=== PATIENT | male | born 1955 | race Hispanic/Latino ===

== ENCOUNTER 2019-04-21 21:43 | Inpatient (IN) | payer MEDICARE ==
[2019-04-21] MEDS ORDERED: oxyCODONE /ACETAMINOPHEN 5-325MG TAB PO ONE (22:30)
[2019-04-21] MEDS ORDERED: SODIUM CHLORIDE 0.9% 1000 ML IV SOLN IV ONE (22:30)
[2019-04-21] MEDS ORDERED: ALBUTEROL 2.5 MG/3 ML NEBU IH ONE (22:30)
[2019-04-21] MEDS ORDERED: ACETAMINOPHEN 325 MG TAB PO ONE (22:31)
--- NOTE | 2019-04-21 22:32 | Emergency Department Report ---
ED General Adult HPI - General Chief complaint: Dyspnea/Respdistress Stated complaint: COPD Time Seen by Provider: 04/21/19 22:08 Source: patient, EMS ( EMS documentation not available at time of chart dictation ), RN notes reviewed Mode of arrival: Wheelchair Limitations: Other (The patient is a poor historian) - History of Present Illness Initial comments: Primary care doctor: Dr. Gerardo Shrestha The patient is a 63-year-old gentleman. He is not known to myself previously. He is currently on BiPAP and is a poor historian. As per [facility] documentation, has history of acute and chronic respiratory failure with hypoxia, COPD, unspecified systolic congestive heart failure, unknown ejection fraction, chronic A. fib, unspecified, unknown if he is on any anticoagulation, type 2 diabetes, psychoactive substance abuse with intoxication, anxiety, hyperlipidemia, constipation, shortness of breath, lack of coordination He is brought to the hospital by EMS for shortness of breath. He was reportedly treated with albuterol, magnesium, steroids. He is currently on a BiPAP. He indicates that he is having pain all over. He indicates that his symptoms started today. He indicates that his symptoms typically improved with Percocet. He does not complain of headache, neck pain, chest pain, abdominal pain, he has diffuse extremity pain. He is found to be febrile, tachycardic, tachypneic, ruling in for systemic inflammatory response syndrome. -: Gradual Location: left, right, upper extremity, lower extremity Severity scale (0 -10): 0 Quality: aching Consistency: constant Improves with: rest Worsens with: movement - Related Data Allergies Allergy/AdvReac Type Severity Reaction Status Date / Time No Known Allergies Allergy Unverified 04/21/19 22:02 ED Review of Systems ROS: Stated complaint: COPD Other details as noted in HPI Constitutional: fever, malaise ENT: congestion Respiratory: cough, shortness of breath, SOB with exertion, SOB at rest, wheezing Cardiovascular: denies: syncope Gastrointestinal: denies: abdominal pain Musculoskeletal: arthralgia, myalgia Skin: denies: lesions Neurological: weakness ED Past Medical Hx - Past Medical History Previous Medical History?: Yes Hx Hypertension: Yes Hx Congestive Heart Failure: Yes Hx Diabetes: Yes Hx Psychiatric Treatment: Yes (anxiety) Hx COPD: Yes Additional medical history: chronic respiratory failure, chronic Afib, hyperlipidemia - Surgical History Past Surgical History?: Yes Additional Surgical History: both shoulder, both knees, right foot, back - Social History Smoking Status: Former Smoker Substance Use Type: None ED Physical Exam - General Limitations: Physical Limitation General appearance: alert, in distress, obese - Head Head exam: Present: atraumatic, normocephalic - Eye Eye exam: Present: normal appearance, EOMI. Absent: nystagmus - ENT ENT exam: Present: normal exam, mucous membranes moist, normal external ear exam - Neck Neck exam: Present: normal inspection, full ROM. Absent: tenderness, meningismus - Respiratory Respiratory exam: Present: respiratory distress, rhonchi, accessory muscle use, decreased breath sounds - Cardiovascular Cardiovascular Exam: Present: normal rhythm, tachycardia, normal heart sounds. Absent: systolic murmur, diastolic murmur, rubs, gallop - GI/Abdominal GI/Abdominal exam: Present: soft. Absent: distended, tenderness, guarding, rebound, rigid, pulsatile mass - Rectal Rectal exam: Present: deferred - Extremities Exam Extremities exam: Present: normal inspection, full ROM, other (2+ pulses noted in the bilateral upper and lower extremities. There is no palpable cord. negative Homans sign. Muscular compartments are soft. The pelvis is stable.). Absent: pedal edema, calf tenderness - Back Exam Back exam: Present: normal inspection. Absent: tenderness, CVA tenderness (R), CVA tenderness (L), paraspinal tenderness, vertebral tenderness - Neurological Exam Neurological exam: Present: alert, other (There is no facial droop. The tongue is midline. Extraocular movements are intact bilaterally. There is 5 out of 5 strength in bilateral upper and lower extremities. Sensation is intact to light touch bilateral upper and lower extremities. ). Absent: motor sensory deficit - Psychiatric Psychiatric exam: Present: anxious - Skin Skin exam: Present: warm, dry, intact, normal color. Absent: rash ED Course Vital Signs 04/21/19 04/21/19 04/21/19 21:48 21:57 21:58 Temperature 101.8 F H Pulse Rate 130 H 129 H 127 H Pulse Rate [ Bilateral] Respiratory 35 H 32 H 33 H Rate Respiratory Rate [Bilateral ] Blood Pressure 133/73 Blood Pressure 132/68 [Right] O2 Sat by Pulse 99 100 99 Oximetry 04/21/19 04/21/19 04/21/19 22:05 22:38 22:40 Temperature 101.8 F H Pulse Rate 125 H Pulse Rate [ Bilateral] Respiratory 32 H 25 H 30 H Rate Respiratory Rate [Bilateral ] Blood Pressure 132/68 Blood Pressure [Right] O2 Sat by Pulse 100 Oximetry 04/21/19 23:05 Temperature Pulse Rate Pulse Rate [ 120 H Bilateral] Respiratory Rate Respiratory 30 H Rate [Bilateral ] Blood Pressure Blood Pressure [Right] O2 Sat by Pulse Oximetry - Reevaluation(s) Reevaluation #1: 04/22/19 00:14 Flu swab pending. Case presented to hospital physician, Dr. Haney, who has accepted the patient to the medical service. ED Medical Decision Making - Lab Data Result diagrams: 04/21/19 23:03 04/21/19 23:03 Vital Signs 04/21/19 04/21/19 04/21/19 21:48 21:57 21:58 Temperature 101.8 F H Pulse Rate 130 H 129 H 127 H Pulse Rate [ Bilateral] Respiratory 35 H 32 H 33 H Rate Respiratory Rate [Bilateral ] Blood Pressure 133/73 Blood Pressure 132/68 [Right] O2 Sat by Pulse 99 100 99 Oximetry 04/21/19 04/21/19 04/21/19 22:05 22:38 22:40 Temperature 101.8 F H Pulse Rate 125 H Pulse Rate [ Bilateral] Respiratory 32 H 25 H 30 H Rate Respiratory Rate [Bilateral ] Blood Pressure 132/68 Blood Pressure [Right] O2 Sat by Pulse 100 Oximetry 04/21/19 23:05 Temperature Pulse Rate Pulse Rate [ 120 H Bilateral] Respiratory Rate Respiratory 30 H Rate [Bilateral ] Blood Pressure Blood Pressure [Right] O2 Sat by Pulse Oximetry Lab Results 04/21/19 04/21/19 Range/Units 21:50 23:03 WBC 12.0 H (4.5-11.0) K/mm3 RBC 3.60 L (3.65-5.03) M/mm3 Hgb 10.6 L (11.8-15.2) gm/dl Hct 33.2 L (35.5-45.6) % MCV 92 (84-94) fl MCH 30 (28-32) pg MCHC 32 (32-34) % RDW 16.0 H (13.2-15.2) % Plt Count 428 (140-440) K/mm3 Lymph % (Auto) 3.6 L (13.4-35.0) % Cowley % (Auto) 7.2 (0.0-7.3) % Eos % (Auto) 0.1 (0.0-4.3) % Baso % (Auto) 0.2 (0.0-1.8) % Lymph # 0.4 L (1.2-5.4) K/mm3 Cowley # 0.9 H (0.0-0.8) K/mm3 Eos # 0.0 (0.0-0.4) K/mm3 Baso # 0.0 (0.0-0.1) K/mm3 Seg Neutrophils % 88.9 H (40.0-70.0) % Seg Neutrophils # 10.7 H (1.8-7.7) K/mm3 ABG pH 7.340 L (7.350-7.450) pH Units ABG pCO2 59.5 mm Hg ABG pO2 102.6 H (80.0-90.0) mm Hg ABG HCO3 31.4 H (20.0-26.0) mmol/L ABG O2 Saturation 97.4 (95.0-99.0) % ABG O2 Content 17.5 (0.0-44) ABG Base Excess 4.1 H (-2.0-3.0) mmol/L ABG Hemoglobin 13.0 L (14.0-18.0) gm/dl ABG Carboxyhemoglobin 1.8 (0.0-5.0) % ABG Methemoglobin 0.5 (0.0-1.5) % Oxyhemoglobin 95.2 (95.0-99.0) % FiO2 40 % Vital Signs 04/21/19 04/21/19 04/21/19 21:48 21:57 21:58 Temperature 101.8 F H Pulse Rate 130 H 129 H 127 H Pulse Rate [ Bilateral] Respiratory 35 H 32 H 33 H Rate Respiratory Rate [Bilateral ] Blood Pressure 133/73 Blood Pressure 132/68 [Right] O2 Sat by Pulse 99 100 99 Oximetry 04/21/19 04/21/19 04/21/19 22:05 22:38 22:40 Temperature 101.8 F H Pulse Rate 125 H Pulse Rate [ Bilateral] Respiratory 32 H 25 H 30 H Rate Respiratory Rate [Bilateral ] Blood Pressure 132/68 Blood Pressure [Right] O2 Sat by Pulse 100 Oximetry 04/21/19 23:05 Temperature Pulse Rate Pulse Rate [ 120 H Bilateral] Respiratory Rate Respiratory 30 H Rate [Bilateral ] Blood Pressure Blood Pressure [Right] O2 Sat by Pulse Oximetry - EKG Data -: EKG Interpreted by Vt EKG shows normal: sinus rhythm Rate: tachycardia - EKG Data 04/21/19 23:30 There is no prior EKG available for comparison. There is motion artifact. Sinus, tachycardia, normal axis, QTC 422 ms, motion artifact, poor R wave progression, abnormal EKG, no prior for comparison. - Radiology Data Radiology results: report reviewed, image reviewed Date of : 1955 Sex: Male Report Date: 2019-04-21 Report Status: Finalized [facility] [address] [place] [address] XRay Report Signed Patient: MK MURDOCK MR#: [id number] 28 : 1955 Acct:[id number] Age/Sex: 63 / M ADM Date: 04/21/19 Loc: ED Attending Dr: Ordering Physician: MATHEW DELGADO MD Date of Service: 04/21/19 Procedure(s): XR chest 1V ap Accession Number(s): [id number] cc: MATHEW DELGADO MD Fluoro Time In Minutes: CHEST 1 VIEW 04/21/2019 10:38 PM INDICATION / CLINICAL INFORMATION: sob. COMPARISON: None available. FINDINGS: SUPPORT DEVICES: None. HEART / MEDIASTINUM: No significant abnormality. LUNGS / PLEURA: Generalized bilateral interstitial opacities are noted. No significant pleural effusion. No pneumothorax. ADDITIONAL FINDINGS: No significant additional findings. IMPRESSION: Probable pulmonary edema. Signer Name: Ramakrishna Salvador MD Signed: 04/21/2019 11:02 PM Workstation Name: [id number] Transcribed By: MN Dictated By: Ramakrishna Salvador MD Electronically Authenticated By: Ramakrishna Salvador MD Signed Date/Time: 04/21/192301 DD/ 00 - Medical Decision Making Differential diagnosis, including but not limited to: Pneumonia, bronchitis, influenza, pericarditis, myocarditis, COPD exacerbation, asthma exacerbation Assessment and plan: 63-year-old gentleman with known reactive airway disease, has diminished breath sounds, does not have crackles, does not have rales, does not have significant lower extremity edema, x-ray interpretation is reviewed and appreciated, I interpret the x-rays being consistent with interstitial lung disease, or chronic lung disease. Patient protecting his airway and on BiPAP therapy at this time. He is found to meet sepsis criteria, manifested by fever, tachycardia, tachypnea. He will be treated according to the sepsis pathway. Laboratory studies pending at this time. We will admit the patient to the medical service once initial diagnostics have resulted. Critical Care Time: Yes Critical care time in (mins) excluding proc time.: 35 Critical care attestation.: If time is entered above; I have spent that time in minutes in the direct care of this critically ill patient, excluding procedure time. ED Disposition Clinical Impression: SIRS (systemic inflammatory response syndrome), COPD exacerbation Disposition: OP ADMIT IP TO THIS HOSP Is pt being admited?: Yes Condition: Serious Instructions: Chronic Obstructive Pulmonary Disease (ED) Referrals: PRIMARY CAREMD [Primary Care Provider] - 3-5 Days
[2019-04-21 22:40] LABS: ABG Base Excess 4.1 mmol/L (-2.0-3.0); ABG HCO3 31.4 mmol/L (20.0-26.0); ABG Methemoglobin 0.5 % (0.0-1.5); ABG Oxygen Saturation 97.4 % (95.0-99.0); ABG PCO2 59.5 mm Hg; ABG PH 7.34 pH Units (7.350-7.450); ABG PO2 102.6 mm Hg (80.0-90.0)
[2019-04-21] MEDS: cefTRIAXone/NS 2 GM/100 ML 2 GM/100 ML BAG IV ONE ×2 (23:00→23:29)
--- NOTE | 2019-04-21 23:06 | XRay Report ---
CHEST 1 VIEW 04/21/2019 10:38 PM INDICATION / CLINICAL INFORMATION: sob. COMPARISON: None available. FINDINGS: SUPPORT DEVICES: None. HEART / MEDIASTINUM: No significant abnormality. LUNGS / PLEURA: Generalized bilateral interstitial opacities are noted. No significant pleural effusi on. No pneumothorax. ADDITIONAL FINDINGS: No significant additional findings. IMPRESSION: Probable pulmonary edema. Signer Name: Ramakrishna Salvador MD Signed: 04/21/2019 11:02 PM Workstation Name: [id number]
[2019-04-21 23:21] LABS: Basophils % (Auto) 0.2 % (0.0-1.8); Eosinophils % (Auto) 0.1 % (0.0-4.3); Hematocrit 33.2 % (35.5-45.6); Hemoglobin 10.6 gm/dl (11.8-15.2); Lymphocytes # (Auto) 0.4 K/mm3 (1.2-5.4); Lymphocytes % (Auto) 3.6 % (13.4-35.0); Mean Corpuscular HGB Conc 32 % (32-34); Mean Corpuscular Volume 92 fl (84-94); Monocytes # (Auto) 0.9 K/mm3 (0.0-0.8); Monocytes % (Auto) 7.2 % (0.0-7.3); Platelet Count 428 K/mm3 (140-440)
[2019-04-21 23:35] LABS: Amorphous Crystals,Urine Few; Bacteria,Urine 1+ /HPF (Negative); Bilirubin,Urine NEG (Negative); Blood,Urine NEG (Negative); Color,Urine Yellow (Yellow); Mucus,Urine 1+ /HPF; Urobilinogen,Urine < 2.0 mg/dL (<2.0)
[2019-04-21 23:36] LABS: INR 1.19 (0.87-1.13)
[2019-04-21] MEDS ORDERED: AZITHROMYCIN 500 MG in SODIUM CHLORIDE 0.9% 250ML 250 ML IV ONE (23:45)
[2019-04-21 23:47] LABS: Alanine Aminotransferase 17 units/L (7-56); Albumin 3.2 g/dL (3.9-5); BUN/Creatinine Ratio 17; Blood Urea Nitrogen 10 mg/dL (9-20); Hemolysis Index 1
[2019-04-22] MEDS ORDERED: ONDANSETRON 4 MG/2 ML INJ IV PRN (00:49)
[2019-04-22] MEDS ORDERED: DEXTROSE 50% IN WATER (25GM) 50 ML SYRINGE IV PRN (00:49)
[2019-04-22] MEDS ORDERED: ACETAMINOPHEN 325 MG TAB PO PRN (00:49)
--- NOTE | 2019-04-22 01:39 | History and Physical Report ---
<ROBERTO RAINES - Last Filed: 04/22/19 01:35> History of Present Illness Date of examination: 04/22/19 Date of admission: 04/22/2019 Chief complaint: SOB History of present illness: 63-year-old male who is a current resident of [facility] with history of chronic respiratory failure on supplemental oxygen, COPD, sys tolic heart failure, chronic A. fib, DM, psychoactive substance abuse with intoxication, anxiety, HLD, and constipation who [facility] with complaints of shortness of breath. Of note patient is a poor historian. History is taken from patient reports, review of assisted packet sent with patient, and EMS reports. Patient states that he has been experiencing progressively worsening shortness of breath x1 day. Patient admits to being on supplemental oxygen, was unable to provide liters per minute. Patient stated, "I just wear whatever they have it set at". He also complains of generalized body aches and "pain all over". When asked to describe the pain patient stated that he usually feels this type pain fom time to time, and the pain is relieved with Percocet. Patient did not provide any additional details in regards to his pain. He denies chest pain at this time. He denies chest pain, nausea, vomiting, or recent sick contact. Will admit for further evaluation and treatment. Past History Past Medical History: atrial fib, COPD, diabetes, hypertension, hyperlipidemia, other (Respiratory failure on 1 to 4 L supplemental oxygen, psychoactive substance abuse with intoxication, anxiety, constipation) Past Surgical History: Other (Bilateral shoulder, bilateral knees, right foot, back) Social history: other (Resident of [facility]) Family history: no significant family history Medications and Allergies Allergies Allergy/AdvReac Type Severity Reaction Status Date / Time No Known Allergies Allergy Unverified 04/21/19 22:02 Home Medications Medication Instructions Recorded Confirmed Last Taken Type ALBUTEROL NEB's [Proventil 0.083% 2.5 mg IH TID PRN 04/22/19 04/22/19 Unknown History NEBS] ALPRAZolam [Xanax TAB] 0.5 mg PO BID PRN 04/22/19 04/22/19 Unknown History Acetaminophen/Diphenhydramine 650 mg PO Q4H 04/22/19 04/22/19 Unknown History [Tylenol Pm Ex-Strength Caplet] Budesonide [Pulmicort] 0.5 mg IH Q12HR 04/22/19 04/22/19 Unknown History Buspirone HCl [busPIRone] 15 mg PO BID 04/22/19 04/22/19 Unknown History Docusate Sodium [Colace] 100 mg PO DAILY PRN 04/22/19 04/22/19 Unknown History Melatonin [Melatonin 10MG CAP] 2 tab PO Q8H PRN 04/22/19 04/22/19 Unknown History Metoprolol [Lopressor] 25 mg PO DAILY 04/22/19 04/22/19 Unknown History Potassium Chloride [K-Dur] 20 meq PO BID 04/22/19 04/22/19 Unknown History Roflumilast [Daliresp] 500 mcg PO QDAY 04/22/19 04/22/19 Unknown History guaiFENesin [Robitussin] 5 ml PO Q4H PRN 04/22/19 04/22/19 Unknown History metFORMIN [Glucophage] 500 mg PO BID 04/22/19 04/22/19 Unknown History oxyCODONE /ACETAMINOPHEN [Percocet 2 tab PO Q8H PRN 04/22/19 04/22/19 Unknown History 5/325] predniSONE [Deltasone] 10 mg PO QDAY 04/22/19 04/22/19 Unknown History Active Meds: Active Medications Acetaminophen (Tylenol) 650 mg PO Q4H PRN PRN Reason: Pain MILD(1-3)/Fever >100.5/HONG Albuterol (Proventil) 2.5 mg IH Q3HRT PRN PRN Reason: Shortness Of Breath Albuterol/Ipratropium (Duoneb *Not For Prn Use*) 1 ampul IH Q6HRT [facility] Budesonide (Pulmicort) 0.5 mg IH Q12HRT [facility] Buspirone HCl (Buspar) 15 mg PO BID [facility] Dextrose (D50w (25gm) Syringe) 0 ml IV Q30MIN PRN; Protocol PRN Reason: Hypoglycemia Docusate Sodium (Colace) 100 mg PO BID [facility] Heparin Sodium (Porcine) (Heparin) 5,000 unit SUB-Q Q12HR [facility] Levofloxacin/Dextrose (Levaquin 500mg/100ml) 500 mg in 100 mls @ 100 mls/hr IV Q24HR [facility]; Protocol Insulin Human Lispro (Humalog) 0 unit SUB-Q ACHS [facility]; Protocol Melatonin (Melatonin) 10 mg PO QHS [facility] Metformin HCl (Glucophage) 500 mg PO BIDDIAB [facility] Methylprednisolone Sodium Succinate (Solu-Medrol) 80 mg IV Q8HR [facility] Ondansetron HCl (Zofran) 4 mg IV Q8H PRN PRN Reason: Nausea And Vomiting Oxycodone/Acetaminophen (Percocet 5/325) 1 tab PO Q6H PRN PRN Reason: Pain, Moderate (4-6) Sodium Chloride (Sodium Chloride Flush Syringe 10 Ml) 10 ml IV BID [facility] Sodium Chloride (Sodium Chloride Flush Syringe 10 Ml) 10 ml IV PRN PRN PRN Reason: LINE FLUSH Review of Systems All systems: negative Constitutional: weakness Respiratory: shortness of breath, dyspnea on exertion, wheezing Musculoskeletal: myalgias Exam - Physical Exam Narrative exam: Physical exam General appearance: Present: Mild distress, alert and oriented 3, obese, adult male - EENT Eyes: Present: PERRL, EOM intact ENT: hearing intact, missing teeth - Neck Neck: Present: supple, normal ROM - Respiratory Respiratory effort: Slightly labored, on BiPAP Respiratory: Coarse wheezing - Cardiovascular Heart rate: 120 (bpm) Rhythm: Sinus tachycardia Heart Sounds: Present: S1 & S2. Absent: rub, click - Extremities Extremities: no ischemia, pulses intact, - Peripheral Assessment Peripheral Pulses: within normal limits - Abdominal General gastrointestinal: Obese, soft, non-tender, normal bowel sounds - Integumentary Integumentary: Present: warm, dry - Musculoskeletal Musculoskeletal: Able to move all extremities -Neurological Neurological: CN II-XII intact - Psychiatric Psychiatric: cooperative - Constitutional Vitals: Temp Pulse Resp BP Pulse Ox 101.8 F H 118 H 28 H 128/66 94 04/21/19 22:05 04/22/19 00:00 04/22/19 00:00 04/22/19 00:00 04/22/19 00:00 Results - Labs CBC & Chem 7: 04/21/19 23:03 04/21/19 23:03 Labs: Laboratory Last Values WBC 12.0 K/mm3 (4.5-11.0) H 04/21/19 23:03 RBC 3.60 M/mm3 (3.65-5.03) L 04/21/19 23:03 Hgb 10.6 gm/dl (11.8-15.2) L 04/21/19 23:03 Hct 33.2 % (35.5-45.6) L 04/21/19 23:03 MCV 92 fl (84-94) 04/21/19 23:03 MCH 30 pg (28-32) 04/21/19 23: MCHC 32 % (32-34) 04/21/19 23:03 RDW 16.0 % (13.2-15.2) H 04/21/19 23:03 Plt Count 428 K/mm3 (140-440) 04/21/19 23:03 Lymph % (Auto) 3.6 % (13.4-35.0) L 04/21/19 23:03 [place] % (Auto) 7.2 % (0.0-7.3) 04/21/19 23:03 Eos % (Auto) 0.1 % (0.0-4.3) 04/21/19 23:03 Baso % (Auto) 0.2 % (0.0-1.8) 04/21/19 23:03 Lymph # 0.4 K/mm3 (1.2-5.4) L 04/21/19 23:03 [place] # 0.9 K/mm3 (0.0-0.8) H 04/21/19 23:03 Eos # 0.0 K/mm3 (0.0-0.4) 04/21/19 23: Baso # 0.0 K/mm3 (0.0-0.1) 04/21/19 23:03 Seg Neutrophils % 88.9 % (40.0-70.0) H 04/21/19 23:03 Seg Neutrophils # 10.7 K/mm3 (1.8-7.7) H 04/21/19 23:03 PT 15.3 Sec. (12.2-14.9) H 04/21/19 23:03 INR 1.19 (0.87-1.13) H 04/21/19 23:03 ABG pH 7.340 pH Units (7.350-7.450) L 04/21/19 21:50 ABG pCO2 59.5 mm Hg 04/21/19 21:50 ABG pO2 102.6 mm Hg (80.0-90.0) H 04/21/19 21:50 ABG HCO3 31.4 mmol/L (20.0-26.0) H 04/21/19 21:50 ABG O2 Saturation 97.4 % (95.0-99.0) 04/21/19 21:50 ABG O2 Content 17.5 (0.0-44) 04/21/19 21:50 ABG Base Excess 4.1 mmol/L (-2.0-3.0) H 04/21/19 21:50 ABG Hemoglobin 13.0 gm/dl (14.0-18.0) L 04/21/19 21:50 ABG Carboxyhemoglobin 1.8 % (0.0-5.0) 04/21/19 21:50 ABG Methemoglobin 0.5 % (0.0-1.5) 04/21/19 21:50 Oxyhemoglobin 95.2 % (95.0-99.0) 04/21/19 21:50 FiO2 40 % 04/21/19 21:50 Sodium 143 mmol/L (137-145) 04/21/19 23:03 Potassium 3.7 mmol/L (3.6-5.0) 04/21/19 23:03 Chloride 99.9 mmol/L (98-107) 04/21/19 23:03 Carbon Dioxide 28 mmol/L (22-30) 04/21/19 23:03 Anion Gap 19 mmol/L 04/21/19 23:03 BUN 10 mg/dL (9-20) 04/21/19 23:03 Creatinine 0.6 mg/dL (0.8-1.5) L 04/21/19 23:03 Estimated GFR > 60 ml/min 04/21/19 23:03 BUN/Creatinine Ratio 17 % 04/21/19 23:03 Glucose 165 mg/dL (75-100) H 04/21/19 23:03 Lactic Acid 1.20 mmol/L (0.7-2.0) 04/22/19 00:58 Calcium 9.0 mg/dL (8.4-10.2) 04/21/19 23:03 Magnesium 2.30 mg/dL (1.7-2.3) 04/21/19 23:03 Total Bilirubin 0.40 mg/dL (0.1-1.2) 04/21/19 23:03 AST 26 units/L (5-40) 04/21/19 23:03 ALT 17 units/L (7-56) 04/21/19 23:03 Alkaline Phosphatase 85 units/L (35-129) 04/21/19 23:03 Total Creatine Kinase 74 units/L (55-170) 04/21/19 23:03 Troponin T < 0.010 ng/mL (0.00-0.029) 04/21/19 23:03 Total Protein 6.6 g/dL (6.3-8.2) 04/21/19 23:03 Albumin 3.2 g/dL (3.9-5) L 04/21/19 23:03 Albumin/Globulin Ratio 0.9 % 04/21/19 23:03 TSH 0.206 mlU/mL (0.270-4.200) L 04/21/19 23:03 Urine Color Yellow (Yellow) 04/21/19 23:04 Urine Turbidity Cloudy (Clear) 04/21/19 23:04 Urine pH 5.0 (5.0-7.0) 04/21/19 23:04 Ur Specific [place] 1.027 (1.003-1.030) 04/21/19 23:04 Urine Protein 100 mg/dl mg/dL (Negative) 04/21/19 23:04 Urine Glucose (UA) Neg mg/dL (Negative) 04/21/19 23:04 Urine Ketones 20 mg/dL (Negative) 04/21/19 23:04 Urine Blood Neg (Negative) 04/21/19 23:04 Urine Nitrite Neg (Negative) 04/21/19 23:04 Urine Bilirubin Neg (Negative) 04/21/19 23:04 Urine Urobilinogen < 2.0 mg/dL (<2.0) 04/21/19 23:04 Ur Leukocyte Esterase Neg (Negative) 04/21/19 23:04 Urine WBC (Auto) 7.0 /HPF (0.0-6.0) H 04/21/19 23:04 Urine RBC (Auto) 74.0 /HPF (0.0-6.0) 04/21/19 23:04 U Epithel Cells (Auto) < 1.0 /HPF (0-13.0) 04/21/19 23:04 Urine Bacteria (Auto) 1+ /HPF (Negative) 04/21/19 23:04 Amorphous Crystals Few 04/21/19 23:04 Urine Mucus 1+ /HPF 04/21/19 23:04 Influenza A (Rapid) Negative (Negative) 04/21/19 00:26 Influenza B (Rapid) Negative (Negative) 04/21/19 00:26 - Imaging and Cardiology Imaging and Cardiology: CXR: FINDINGS: SUPPORT DEVICES: None. HEART / MEDIASTINUM: No significant abnormality. LUNGS / PLEURA: Generalized bilateral interstitial opacities are noted. No significant pleural effusion. No pneumothorax. ADDITIONAL FINDINGS: No significant additional findings. IMPRESSION: Probable pulmonary edema. Assessment and Plan Assessment and plan: 63-year-old male who is a current resident of [facility] assisted with history of chronic respiratory failure on supplemental oxygen, COPD, systolic heart failure, chronic A. fib, DM, psychoactive substance abuse with intoxication, anxiety, HLD, and constipation who [facility] with complaints of shortness of breath x 1 day. SIRS -CXR shows probable pulmonary edema -Leukocytosis 12 -Tachycardic with heart rate 110-120 bpm -T-max one 1.8 -UA negative -Blood and urine cultures pending -On IV ABX -Continue supportive care Acute exacerbation COPD -Increased shortness of breath -Scheduled to DuoNebs and Pulmicort, albuterol when necessary -Start IV Levaquin -IV systemic steroids -Continue supportive care Acute on chronic hypoxic respiratory failure -Baseline home oxygen requirements of 1-4L prn -Currently on BiPAP -Initial ABG done on BiPAP 40% FiO2 7.34/50 9.5/102 0.6/31.4 -Monitor saturations -Continue supplemental oxygen wean as tolerated R/O Influenza -C/o generalize weakness and body aches -Rapid influenza A and influenza B negative -Received flu vaccine on 04/15/2019 in outpatient setting DM -POC BG monitoring -Continue metformin and SSI coverage prn -HgbA1C pending Obesity -BMI 31.8 kg -Diet and lifestyle modifications -May benefit from OP weight mgmt program Moderate to severe malnutrition -Albumin 3.2 -Dietary consult placed DVT PPX -on Heparin Advance Directives: No VTE prophylaxis?: Chemical Plan of care discussed with patient/family: Yes <DUPREECONSTANTINOESTHER E - Last Filed: 04/22/19 06:28> History of Present Illness Date of admission: 04/22/19 01:55 Medications and Allergies Active Meds: Active Medications Acetaminophen (Tylenol) 650 mg PO Q4H PRN PRN Reason: Pain MILD(1-3)/Fever >100.5/HONG Albuterol (Proventil) 2.5 mg IH Q3HRT PRN PRN Reason: Shortness Of Breath Albuterol/Ipratropium (Duoneb *Not For Prn Use*) 1 ampul IH Q6HRT [facility] Last Admin: 04/22/19 02:07 Dose: 1 ampul Documented by: Budesonide (Pulmicort) 0.5 mg IH Q12HRT [facility] Buspirone HCl (Buspar) 15 mg PO BID [facility] Dextrose (D50w (25gm) Syringe) 0 ml IV Q30MIN PRN; Protocol PRN Reason: Hypoglycemia Docusate Sodium (Colace) 100 mg PO BID [facility] Heparin Sodium (Porcine) (Heparin) 5,000 unit SUB-Q Q12HR [facility] Levofloxacin/Dextrose (Levaquin 500mg/100ml) 500 mg in 100 mls @ 100 mls/hr IV Q24HR [facility]; Protocol Insulin Human Lispro (Humalog) 0 unit SUB-Q ACHS [facility]LO[facility]; Protocol Melatonin (Melatonin) 10 mg PO QHS [facility] Metformin HCl (Glucophage) 500 mg PO BIDDIAB [facility] Methylprednisolone Sodium Succinate (Solu-Medrol) 80 mg IV Q8HR [facility] Ondansetron HCl (Zofran) 4 mg IV Q8H PRN PRN Reason: Nausea And Vomiting Oxycodone/Acetaminophen (Percocet 5/325) 1 tab PO Q6H PRN PRN Reason: Pain, Moderate (4-6) Last Admin: 04/22/19 04:42 Dose: 1 tab Documented by: Sodium Chloride (Sodium Chloride Flush Syringe 10 Ml) 10 ml IV BID [facility] Sodium Chloride (Sodium Chloride Flush Syringe 10 Ml) 10 ml IV PRN PRN PRN Reason: LINE FLUSH Exam - Constitutional Vitals: Temp Pulse Resp BP Pulse Ox 98.2 F 109 H 26 H 131/72 96 04/22/19 02:58 04/22/19 03:43 04/22/19 03:43 04/22/19 02:58 04/22/19 03:43 Results - Labs CBC & Chem 7: 04/21/19 23:03 04/21/19 23:03 Labs: Laboratory Last Values WBC 12.0 K/mm3 (4.5-11.0) H 04/21/19 23:03 RBC 3.60 M/mm3 (3.65-5.03) L 04/21/19 23:03 Hgb 10.6 gm/dl (11.8-15.2) L 04/21/19 23:03 Hct 33.2 % (35.5-45.6) L 04/21/19 23:03 MCV 92 fl (84-94) 04/21/19 23:03 MCH 30 pg (28-32) 04/21/19 23:03 MCHC 32 % (32-34) 04/21/19 23:03 RDW 16.0 % (13.2-15.2) H 04/21/19 23:03 Plt Count 428 K/mm3 (140-440) 04/21/19 23:03 Lymph % (Auto) 3.6 % (13.4-35.0) L 04/21/19 23:03 [place] % (Auto) 7.2 % (0.0-7.3) 04/21/19 23:03 Eos % (Auto) 0.1 % (0.0-4.3) 04/21/19 23:03 Baso % (Auto) 0.2 % (0.0-1.8) 04/21/19 23:03 Lymph # 0.4 K/mm3 (1.2-5.4) L 04/21/19 23:03 [place] # 0.9 K/mm3 (0.0-0.8) H 04/21/19 23:03 Eos # 0.0 K/mm3 (0.0-0.4) 04/21/19 23:03 Baso # 0.0 K/mm3 (0.0-0.1) 04/21/19 23:03 Seg Neutrophils % 88.9 % (40.0-70.0) H 04/21/19 23:03 Seg Neutrophils # 10.7 K/mm3 (1.8-7.7) H 04/21/19 23:03 PT 15.3 Sec. (12.2-14.9) H 04/21/19 23:03 INR 1.19 (0.87-1.13) H 04/21/19 23:03 ABG pH 7.340 pH Units (7.350-7.450) L 04/21/19 21:50 ABG pCO2 59.5 mm Hg 04/21/19 21:50 ABG pO2 102.6 mm Hg (80.0-90.0) H 04/21/19 21:50 ABG HCO3 31.4 mmol/L (20.0-26.0) H 04/21/19 21:50 ABG O2 Saturation 97.4 % (95.0-99.0) 04/21/19 21:50 ABG O2 Content 17.5 (0.0-44) 04/21/19 21:50 ABG Base Excess 4.1 mmol/L (-2.0-3.0) H 04/21/19 21:50 ABG Hemoglobin 13.0 gm/dl (14.0-18.0) L 04/21/19 21:50 ABG Carboxyhemoglobin 1.8 % (0.0-5.0) 04/21/19 21:50 ABG Methemoglobin 0.5 % (0.0-1.5) 04/21/19 21:50 Oxyhemoglobin 95.2 % (95.0-99.0) 04/21/19 21:50 FiO2 40 % 04/21/19 21:50 Sodium 143 mmol/L (137-145) 04/21/19 23:03 Potassium 3.7 mmol/L (3.6-5.0) 04/21/19 23:03 Chloride 99.9 mmol/L (98-107) 04/21/19 23:03 Carbon Dioxide 28 mmol/L (22-30) 04/21/19 23:03 Anion Gap 19 mmol/L 04/21/19 23:03 BUN 10 mg/dL (9-20) 04/21/19 23:03 Creatinine 0.6 mg/dL (0.8-1.5) L 04/21/19 23:03 Estimated GFR > 60 ml/min 04/21/19 23:03 BUN/Creatinine Ratio 17 % 04/21/19 23:03 Glucose 165 mg/dL (75-100) H 04/21/19 23:03 Hemoglobin A1c 7.9 % (4-6) H 04/22/19 01:51 Lactic Acid 1.20 mmol/L (0.7-2.0) 04/22/19 00:58 Calcium 9.0 mg/dL (8.4-10.2) 04/21/19 23:03 Magnesium 2.30 mg/dL (1.7-2.3) 04/21/19 23:03 Total Bilirubin 0.40 mg/dL (0.1-1.2) 04/21/19 23:03 AST 26 units/L (5-40) 04/21/19 23:03 ALT 17 units/L (7-56) 04/21/19 23:03 Alkaline Phosphatase 85 units/L (35-129) 04/21/19 23:03 Total Creatine Kinase 74 units/L (55-170) 04/21/19 23:03 Troponin T < 0.010 ng/mL (0.00-0.029) 04/21/19 23:03 Total Protein 6.6 g/dL (6.3-8.2) 04/21/19 23:03 Albumin 3.2 g/dL (3.9-5) L 04/21/19 23:03 Albumin/Globulin Ratio 0.9 % 04/21/19 23:03 TSH 0.206 mlU/mL (0.270-4.200) L 04/21/19 23:03 Urine Color Yellow (Yellow) 04/21/19 23:04 Urine Turbidity Cloudy (Clear) 04/21/19 23:04 Urine pH 5.0 (5.0-7.0) 04/21/19 23:04 Ur Specific [place] 1.027 (1.003-1.030) 04/21/19 23:04 Urine Protein 100 mg/dl mg/dL (Negative) 04/21/19 23:04 Urine Glucose (UA) Neg mg/dL (Negative) 04/21/19 23:04 Urine Ketones 20 mg/dL (Negative) 04/21/19 23:04 Urine Blood Neg (Negative) 04/21/19 23:04 Urine Nitrite Neg (Negative) 04/21/19 23:04 Urine Bilirubin Neg (Negative) 04/21/19 23:04 Urine Urobilinogen < 2.0 mg/dL (<2.0) 04/21/19 23:04 Ur Leukocyte Esterase Neg (Negative) 04/21/19 23:04 Urine WBC (Auto) 7.0 /HPF (0.0-6.0) H 04/21/19 23:04 Urine RBC (Auto) 74.0 /HPF (0.0-6.0) 04/21/19 23:04 U Epithel Cells (Auto) < 1.0 /HPF (0-13.0) 04/21/19 23:04 Urine Bacteria (Auto) 1+ /HPF (Negative) 04/21/19 23:04 Amorphous Crystals Few 04/21/19 23:04 Urine Mucus 1+ /HPF 04/21/19 23:04 Influenza A (Rapid) Negative (Negative) 04/21/19 00:26 Influenza B (Rapid) Negative (Negative) 04/21/19 00:26 Assessment and Plan Assessment and plan: Patient seen and examined, discussed with nurse practitioner, agree with plan as stated above
[2019-04-22] MEDS: IPRATROPIUM/ALBUTEROL SULFATE 3 ML AMPUL.NEB IH SCH ×4 (02:07→20:41)
[2019-04-22] MEDS ORDERED: IPRATROPIUM/ALBUTEROL SULFATE 3 ML AMPUL.NEB IH ONE (02:07)
[2019-04-22] MEDS: oxyCODONE /ACETAMINOPHEN 5-325MG TAB PO PRN ×3 (04:42→18:13)
[2019-04-22] MEDS: BUDESONIDE 0.5 MG/2 ML NEBU IH SCH ×2 (07:53→20:41)
[2019-04-22] MEDS: INSULIN LISPRO 100 UNIT/ML SUB-Q SCH (08:22)
[2019-04-22] MEDS: metFORMIN 500 MG TAB PO SCH ×2 (08:22→18:13)
[2019-04-22] MEDS: busPIRone 5 MG TAB PO SCH ×2 (12:22→21:38)
[2019-04-22] MEDS: HEPARIN 5,000 UNIT/1 ML VIAL SUB-Q SCH ×2 (12:23→21:43)
[2019-04-22] MEDS: DOCUSATE SODIUM 100 MG CAP PO SCH ×2 (12:23→21:38)
[2019-04-22] MEDS: methylPREDNISolone Sod Succinate 40 MG/1 ML INJ IV SCH ×2 (15:00→21:38)
--- NOTE | 2019-04-22 18:48 | Progress Note ---
Assessment and Plan Assessment and plan: --Acute on chronic hypoxic respiratory failure; Requiring BiPAP, patient is on home oxygen Oxygen titrate O2 sats to more than 90%, BiPAP as needed Nebulizers, IV steroids, inhalation steroids Supportive care --Acute exacerbation of COPD; the cause of acute respiratory failure Oxygen, nebs, steroids, inhalers, supportive care Pulmonary consult if no improvement --Acute bronchitis/pneumonitis Empiric antibiotics with Levaquin, bronchodilators Oxygen and supportive care --Upper respiratory symptoms; Influenza a and B- Supportive care --Type 2 diabetes mellitus; Accu-Chek sliding scale coverage ADA diet Insulin as needed, A1c 7.9 --Moderate malnutrition/hypoalbuminemia Nutrition supplements, supportive care Nutrition consult if needed --SIRS, Follow cultures, empiric antibiotics IV fluids and supportive care --DVT prophylaxis; heparin subcu --Obesity; BMI 31.9 Advised weight reduction when medically stable --Ongoing tobacco use; smoking cessation counseling Nicotine patch as needed --Recreational drug use; alcohol, marijuana Patient strongly advised to quit recreational drugs Patient verbalized understanding --Full CODE STATUS; Monitor closely and adjust management as needed Disposition; optimize medications Discharge home when medically stable Plan of care reviewed with the patient and his nurse History Interval history: Patient seen and examined at the bedside this afternoon Patient's chart overnight events reviewed Patient was admitted with acute on chronic respiratory failure due to COPD exacerbation Slight improvement continues to have shortness of breath and wheeze In mild distress, vital signs reviewed Hospitalist Physical - Constitutional Vitals: Temp Pulse Resp BP Pulse Ox 98.2 F 113 H 10 L 114/71 87 04/22/19 16:31 04/22/19 16:31 04/22/19 18:13 04/22/19 16:31 04/22/19 16:31 General appearance: Present: mild distress, well-nourished, obese - EENT Eyes: Present: PERRL, EOM intact - Neck Neck: Present: normal ROM - Respiratory Respiratory effort: normal Respiratory: bilateral: diminished, rhonchi, wheezing, negative: rales - Cardiovascular Rhythm: regular Heart Sounds: Present: S1 & S2 - Extremities Extremities: no ischemia, No edema - Abdominal General gastrointestinal: soft, non-tender, non-distended, normal bowel sounds - Integumentary Integumentary: Present: clear, warm - Psychiatric Psychiatric: appropriate mood/affect, cooperative - Neurologic Neurologic: moves all extremities Results - Labs CBC & Chem 7: 04/21/19 23:03 04/21/19 23:03 Labs: Laboratory Last Values WBC 12.0 K/mm3 (4.5-11.0) H 04/21/19 23:03 RBC 3.60 M/mm3 (3.65-5.03) L 04/21/19 23:03 Hgb 10.6 gm/dl (11.8-15.2) L 04/21/19 23:03 Hct 33.2 % (35.5-45.6) L 04/21/19 23:03 MCV 92 fl (84-94) 04/21/19 23: MCH 30 pg (28-32) 04/21/19: MCHC 32 % (32-34) 04/21/19 23: RDW 16.0 % (13.2-15.2) H 04/21/19 23: Plt Count 428 K/mm3 (140-440) 04/21/19 23:03 Lymph % (Auto) 3.6 % (13.4-35.0) L 04/21/19 23: [place] % (Auto) 7.2 % (0.0-7.3) 04/21/19 23: Eos % (Auto) 0.1 % (0.0-4.3) 04/21/19 23: Baso % (Auto) 0.2 % (0.0-1.8) 04/21/19 23:03 Lymph # 0.4 K/mm3 (1.2-5.4) L 04/21/19 23:03 [place] # 0.9 K/mm3 (0.0-0.8) H 04/21/19 23:03 Eos # 0.0 K/mm3 (0.0-0.4) 04/21/19 23:03 Baso # 0.0 K/mm3 (0.0-0.1) 04/21/19 23: Seg Neutrophils % 88.9 % (40.0-70.0) H 04/21/19 23:03 Seg Neutrophils # 10.7 K/mm3 (1.8-7.7) H 04/21/19 23:03 PT 15.3 Sec. (12.2-14.9) H 04/21/19 23:03 INR 1.19 (0.87-1.13) H 04/21/19 23:03 ABG pH 7.340 pH Units (7.350-7.450) L 04/21/19 21:50 ABG pCO2 59.5 mm Hg 04/21/19 21:50 ABG pO2 102.6 mm Hg (80.0-90.0) H 04/21/19 21:50 ABG HCO3 31.4 mmol/L (20.0-26.0) H 04/21/19 21:50 ABG O2 Saturation 97.4 % (95.0-99.0) 04/21/19 21:50 ABG O2 Content 17.5 (0.0-44) 04/21/19 21:50 ABG Base Excess 4.1 mmol/L (-2.0-3.0) H 04/21/19 21:50 ABG Hemoglobin 13.0 gm/dl (14.0-18.0) L 04/21/19 21:50 ABG Carboxyhemoglobin 1.8 % (0.0-5.0) 04/21/19 21:50 ABG Methemoglobin 0.5 % (0.0-1.5) 04/21/19 21:50 Oxyhemoglobin 95.2 % (95.0-99.0) 04/21/19 21:50 FiO2 40 % 04/21/19 21:50 Sodium 143 mmol/L (137-145) 04/21/19 23:03 Potassium 3.7 mmol/L (3.6-5.0) 04/21/19 23:03 Chloride 99.9 mmol/L (98-107) 04/21/19 23:03 Carbon Dioxide 28 mmol/L (22-30) 04/21/19 23:03 Anion Gap 19 mmol/L 04/21/19 23:03 BUN 10 mg/dL (9-20) 04/21/19 23:03 Creatinine 0.6 mg/dL (0.8-1.5) L 04/21/19 23:03 Estimated GFR > 60 ml/min 04/21/19 23:03 BUN/Creatinine Ratio 17 % 04/21/19 23:03 Glucose 165 mg/dL (75-100) H 04/21/19 23:03 POC Glucose 153 (70-105) H 04/22/19 16:39 Hemoglobin A1c 7.9 % (4-6) H 04/22/19 01:51 Lactic Acid 1.20 mmol/L (0.7-2.0) 04/22/19 00:58 Calcium 9.0 mg/dL (8.4-10.2) 04/21/19 23:03 Magnesium 2.30 mg/dL (1.7-2.3) 04/21/19 23:03 Total Bilirubin 0.40 mg/dL (0.1-1.2) 04/21/19 23:03 AST 26 units/L (5-40) 04/21/19 23:03 ALT 17 units/L (7-56) 04/21/19 23:03 Alkaline Phosphatase 85 units/L (35-129) 04/21/19 23:03 Total Creatine Kinase 74 units/L (55-170) 04/21/19 23:03 Troponin T < 0.010 ng/mL (0.00-0.029) 04/21/19 23:03 Total Protein 6.6 g/dL (6.3-8.2) 04/21/19 23:03 Albumin 3.2 g/dL (3.9-5) L 04/21/19 23:03 Albumin/Globulin Ratio 0.9 % 04/21/19 23:03 TSH 0.206 mlU/mL (0.270-4.200) L 04/21/19 23:03 Urine Color Yellow (Yellow) 04/21/19 23:04 Urine Turbidity Cloudy (Clear) 04/21/19 23:04 Urine pH 5.0 (5.0-7.0) 04/21/19 23:04 Ur Specific [place] 1.027 (1.003-1.030) 04/21/19 23:04 Urine Protein 100 mg/dl mg/dL (Negative) 04/21/19 23:04 Urine Glucose (UA) Neg mg/dL (Negative) 04/21/19 23:04 Urine Ketones 20 mg/dL (Negative) 04/21/19 23:04 Urine Blood Neg (Negative) 04/21/19 23:04 Urine Nitrite Neg (Negative) 04/21/19 23:04 Urine Bilirubin Neg (Negative) 04/21/19 23:04 Urine Urobilinogen < 2.0 mg/dL (<2.0) 04/21/19 23:04 Ur Leukocyte Esterase Neg (Negative) 04/21/19 23:04 Urine WBC (Auto) 7.0 /HPF (0.0-6.0) H 04/21/19 23:04 Urine RBC (Auto) 74.0 /HPF (0.0-6.0) 04/21/19 23:04 U Epithel Cells (Auto) < 1.0 /HPF (0-13.0) 04/21/19 23:04 Urine Bacteria (Auto) 1+ /HPF (Negative) 04/21/19 23:04 Amorphous Crystals Few 04/21/19 23:04 Urine Mucus 1+ /HPF 04/21/19 23:04 Influenza A (Rapid) Negative (Negative) 04/21/19 00:26 Influenza B (Rapid) Negative (Negative) 04/21/19 00:26 Active Medications - Current Medications Current Medications: Generic Name Dose Route Start Last Admin Trade Name Freq PRN Reason Stop Dose Admin Acetaminophen 650 mg 04/22/19 00:49 Tylenol PO Q4H PRN Pain MILD(1-3)/Fever >100.5/HONG Albuterol 2.5 mg 04/22/19 00:49 Proventil IH Q3HRT PRN Shortness Of Breath Albuterol/Ipratropium 1 ampul 04/22/19 02:00 04/22/19 14:18 Duoneb *Not For Prn Use* IH 1 ampul Q6HRT ELOISE Administration Budesonide 0.5 mg 04/22/19 08:00 04/22/19 07:53 Pulmicort IH 0.5 mg Q12HRT ELOISE Administration Buspirone HCl 15 mg 04/22/19 10:00 04/22/19 12:22 Buspar PO 15 mg BID ELOISE Administration Dextrose 0 ml 04/22/19 00:49 D50w (25gm) Syringe IV Q30MIN PRN Hypoglycemia Protocol Docusate Sodium 100 mg 04/22/19 10:00 04/22/19 12:23 Colace PO 100 mg BID ELOISE Administration Heparin Sodium (Porcine) 5,000 unit 04/22/19 10:00 04/22/19 12:23 Heparin SUB-Q 5,000 unit Q12HR ELOISE Administration Levofloxacin/Dextrose 500 mg in 100 mls @ 100 mls/hr 04/22/19 10:00 04/22/19 12:24 Levaquin 500mg/100ml IV 100 mls/hr Q24HR ELOISE Administration Protocol Insulin Human Lispro 0 unit 04/22/19 07:30 04/22/19 08:22 Humalog SUB-Q 2 unit ACHS ELOISE Administration Protocol Melatonin 10 mg 04/22/19 22:00 Melatonin PO QHS ELOISE Metformin HCl 500 mg 04/22/19 08:00 04/22/19 18:13 Glucophage PO 500 mg BIDDIAB ELOISE Administration Methylprednisolone Sodium Succinate 80 mg 04/22/19 06:00 04/22/19 15:00 Solu-Medrol IV 80 mg Q8HR ELOISE Administration Ondansetron HCl 4 mg 04/22/19 00:49 Zofran IV Q8H PRN Nausea And Vomiting Oxycodone/Acetaminophen 1 tab 04/22/19 00:49 04/22/19 18:13 Percocet 5/325 PO 1 tab Q6H PRN Administration Pain, Moderate (4-6) Sodium Chloride 10 ml 04/22/19 10:00 04/22/19 12:24 Sodium Chloride Flush Syringe 10 Ml IV 10 ml BID ELOISE Administration Sodium Chloride 10 ml 04/22/19 00:49 Sodium Chloride Flush Syringe 10 Ml IV PRN PRN LINE FLUSH Nutrition/Malnutrition Assess - Dietary Evaluation Nutrition/Malnutrition Findings: Nutrition Notes Start: 04/22/19 11:37 Freq: Status: Active Protocol: Document 04/22/19 11:37 CW (Rec: 04/22/19 11:48 CW [email or web address]) Co-Sign 04/22/19 11:37 LP Nutrition Notes Need for Assessment generated from: MD Order Initial or Follow up Assessment Current Diagnosis COPD,Diabetes,Respiratory Failure,Hyperlipidemia Other Pertinent Diagnosis SIRS, A fib, Substance dependence Current Diet Cardiac Consistent CHO Labs/Tests POC BG 178 HgbA1c 7.6 Pertinent Medications Glucophage Humalog Solu-Medrol Colace Percocet Height 5 ft 8 in Weight 95.3 kg Usual Body Weight 91.4 kg [place] Body Weight (kg) 70.00 BMI 31.9 Weight change and time frame Wt gain noted Weight Status Obese Subjective/Other Information MD consult for malnutrition. Pt lethargic and mildly responsive during visit. Pt stated that UBW is 201 lbs, indicating wt gain. Pt currently eating 75% of meals. D/T elevated HgbA1c, Pt is a candidate for diet edu R/T DM management Burn Absent Trauma Absent GI Symptoms Constipation Current % PO Good (75-100%) Minimum of two criteria No physical signs of malnutrition #1 Nutrition Diagnosis Food and nutrition-related knowledge deficit Etiology Lack of diet education related to DM As Evidenced by Signs and Symptoms Pt needing diet edu D/T HgbA1c of 7.6 Is patient on ventilator? No Is Patient Ambulatory and/or Out of Bed No REE-([place]-confined to bed) 2083.716 Kcal/Kg value to use for calculation 16 Approximate Energy Requirements Using 1525 kcal/Kg Calculation Used for Recommendations Kcal/kg Additional Notes protein needs: 66 - 83 g (0.8 - 1 g/kgAdBW; AdBW: 83 kg) Fluid needs: 1 ml/kcal Nutrition Intervention Change Diet Order: Continue cardiac consistent CHO Goal #1 Meet at least 75% of kcal/ protein needs Goal #2 Diet education regarding DM Anticipated Discharge Needs: Cardiac Consistent CHO diet Follow-Up By: 04/26/19 Additional Comments F/U DM diet education and stable PO intakes
[2019-04-22] MEDS: MELATONIN 5 MG TAB PO SCH (21:36)
[2019-04-23] MEDS: oxyCODONE /ACETAMINOPHEN 5-325MG TAB PO PRN ×4 (02:45→20:33)
[2019-04-23] MEDS: BUDESONIDE 0.5 MG/2 ML NEBU IH SCH ×2 (07:18→20:12)
[2019-04-23] MEDS: IPRATROPIUM/ALBUTEROL SULFATE 3 ML AMPUL.NEB IH SCH ×4 (07:19→20:12)
[2019-04-23 07:32] LABS: Basophils % (Auto) 0.1 % (0.0-1.8); Hematocrit 32.8 % (35.5-45.6); Hemoglobin 10.6 gm/dl (11.8-15.2); Lymphocytes # (Auto) 0.7 K/mm3 (1.2-5.4); Lymphocytes % (Auto) 6.8 % (13.4-35.0); Mean Corpuscular HGB Conc 32 % (32-34); Mean Corpuscular Volume 93 fl (84-94); Monocytes # (Auto) 0.9 K/mm3 (0.0-0.8); Platelet Count 437 K/mm3 (140-440); Red Blood Count 3.54 M/mm3 (3.65-5.03); Red Cell Distribution Width 16.2 % (13.2-15.2)
[2019-04-23 07:41] LABS: BUN/Creatinine Ratio 34; Blood Urea Nitrogen 17 mg/dL (9-20); Calcium 9.3 mg/dL (8.4-10.2); Hemolysis Index 8
[2019-04-23] MEDS: metFORMIN 500 MG TAB PO SCH ×2 (08:13→18:14)
[2019-04-23] MEDS: INSULIN LISPRO 100 UNIT/ML SUB-Q SCH ×6 (09:22→22:17)
[2019-04-23] MEDS: ALBUTEROL 2.5 MG/3 ML NEBU IH PRN (09:51)
[2019-04-23] MEDS: DOCUSATE SODIUM 100 MG CAP PO SCH ×2 (09:59→22:14)
[2019-04-23] MEDS: busPIRone 5 MG TAB PO SCH ×2 (09:59→22:13)
[2019-04-23] MEDS: HEPARIN 5,000 UNIT/1 ML VIAL SUB-Q SCH ×2 (10:00→22:14)
[2019-04-23] MEDS: methylPREDNISolone Sod Succinate 40 MG/1 ML INJ IV SCH ×3 (13:36→22:13)
[2019-04-23] MEDS ORDERED: ALBUTEROL 2.5 MG/3 ML NEBU IH SCH (16:00)
[2019-04-23] MEDS ORDERED: ARFORMOTEROL 15 MCG/2 ML NEBU IH SCH (20:00)
--- NOTE | 2019-04-23 20:53 | Progress Note ---
Assessment and Plan Assessment and plan: We will start tapering steroid dose Ambulate as tolerated Optimize medications Possible discharge back to SNF tomorrow if stable --Acute bronchitis/pneumonitis Empiric antibiotics with Levaquin, bronchodilators Oxygen and supportive care --Acute on chronic hypoxic respiratory failure; Requiring BiPAP, patient is on home oxygen Oxygen titrate O2 sats to more than 90%, BiPAP as needed Nebulizers, IV steroids, inhalation steroids Supportive care --Acute exacerbation of COPD; the cause of acute respiratory failure Oxygen, nebs, steroids, inhalers, supportive care Pulmonary consult if no improvement --Upper respiratory symptoms; Mild improvement, influenza AB- --Type 2 diabetes mellitus; Accu-Chek sliding scale coverage ADA diet Insulin as needed, A1c 7.9 --Moderate malnutrition/hypoalbuminemia Nutrition supplements, supportive care Nutrition consult if needed --SIRS, Follow cultures, empiric antibiotics IV fluids and supportive care --DVT prophylaxis; heparin subcu --Obesity; BMI 31.9 Advised weight reduction when medically stable --Ongoing tobacco use; smoking cessation counseling Nicotine patch as needed --Recreational drug use; alcohol, marijuana Patient strongly advised to quit recreational drugs Patient verbalized understanding --Full CODE STATUS; Disposition; optimize medications Discharge home when medically stable Plan of care reviewed with the patient and his nurse History Interval history: Patient continues to have shortness of breath and cough Significantly improved since admission Requiring Ventimask Patient also complains of generalized body pains Asked for pain medications Alert awake oriented Vital signs reviewed Hospitalist Physical - Constitutional Vitals: Temp Pulse Resp BP Pulse Ox 98.2 F 116 H 20 144/86 95 04/23/19 16:48 04/23/19 20:15 04/23/19 20:15 04/23/19 16:48 04/23/19 20:17 General appearance: Present: mild distress, well-nourished, obese - EENT Eyes: Present: PERRL, EOM intact - Neck Neck: Present: supple, normal ROM - Respiratory Respiratory effort: normal Respiratory: bilateral: diminished, wheezing, negative: rales, rhonchi - Cardiovascular Rhythm: regular Heart Sounds: Present: S1 & S2 - Extremities Extremities: no ischemia, No edema - Abdominal General gastrointestinal: soft, non-tender, non-distended, normal bowel sounds - Integumentary Integumentary: Present: clear, warm - Psychiatric Psychiatric: appropriate mood/affect, cooperative - Neurologic Neurologic: CNII-XII intact, moves all extremities Results - Labs CBC & Chem 7: 04/23/19 07:06 04/23/19 07:06 Labs: Laboratory Last Values WBC 10.7 K/mm3 (4.5-11.0) 04/23/19 07:06 RBC 3.54 M/mm3 (3.65-5.03) L 04/23/19 07:06 Hgb 10.6 gm/dl (11.8-15.2) L 04/23/19 07:06 Hct 32.8 % (35.5-45.6) L 04/23/19 07:06 MCV 93 fl (84-94) 04/23/19 07:06 MCH 30 pg (28-32) 04/23/19 07:06 MCHC 32 % (32-34) 04/23/19 07:06 RDW 16.2 % (13.2-15.2) H 04/23/19 07:06 Plt Count 437 K/mm3 (140-440) 04/23/19 07:06 Lymph % (Auto) 6.8 % (13.4-35.0) L 04/23/19 07:06 [place] % (Auto) 8.0 % (0.0-7.3) H 04/23/19 07:06 Eos % (Auto) 0.0 % (0.0-4.3) 04/23/19 07:06 Baso % (Auto) 0.1 % (0.0-1.8) 04/23/19 07:06 Lymph # 0.7 K/mm3 (1.2-5.4) L 04/23/19 07:06 [place] # 0.9 K/mm3 (0.0-0.8) H 04/23/19 07:06 Eos # 0.0 K/mm3 (0.0-0.4) 04/23/19 07:06 Baso # 0.0 K/mm3 (0.0-0.1) 04/23/19 07:06 Seg Neutrophils % 85.1 % (40.0-70.0) H 04/23/19 07:06 Seg Neutrophils # 9.1 K/mm3 (1.8-7.7) H 04/23/19 07:06 PT 15.3 Sec. (12.2-14.9) H 04/21/19 23:03 INR 1.19 (0.87-1.13) H 04/21/19 23:03 ABG pH 7.340 pH Units (7.350-7.450) L 04/21/19 21:50 ABG pCO2 59.5 mm Hg 04/21/19 21:50 ABG pO2 102.6 mm Hg (80.0-90.0) H 04/21/19 21:50 ABG HCO3 31.4 mmol/L (20.0-26.0) H 04/21/19 21:50 ABG O2 Saturation 97.4 % (95.0-99.0) 04/21/19 21:50 ABG O2 Content 17.5 (0.0-44) 04/21/19 21:50 ABG Base Excess 4.1 mmol/L (-2.0-3.0) H 04/21/19 21:50 ABG Hemoglobin 13.0 gm/dl (14.0-18.0) L 04/21/19 21:50 ABG Carboxyhemoglobin 1.8 % (0.0-5.0) 04/21/19 21:50 ABG Methemoglobin 0.5 % (0.0-1.5) 04/21/19 21:50 Oxyhemoglobin 95.2 % (95.0-99.0) 04/21/19 21:50 FiO2 40 % 04/21/19 21:50 Sodium 143 mmol/L (137-145) 04/23/19 07:06 Potassium 4.6 mmol/L (3.6-5.0) D 04/23/19 07:06 Chloride 102.0 mmol/L (98-107) 04/23/19 07:06 Carbon Dioxide 27 mmol/L (22-30) 04/23/19 07:06 Anion Gap 19 mmol/L 04/23/19 07:06 BUN 17 mg/dL (9-20) 04/23/19 07:06 Creatinine 0.5 mg/dL (0.8-1.5) L 04/23/19 07:06 Estimated GFR > 60 ml/min 04/23/19 07:06 BUN/Creatinine Ratio 34 % 04/23/19 07:06 Glucose 159 mg/dL (75-100) H 04/23/19 07:06 POC Glucose 187 (70-105) H 04/23/19 16:57 Hemoglobin A1c 7.9 % (4-6) H 04/22/19 01:51 Lactic Acid 1.20 mmol/L (0.7-2.0) 04/22/19 00:58 Calcium 9.3 mg/dL (8.4-10.2) 04/23/19 07:06 Magnesium 2.30 mg/dL (1.7-2.3) 04/21/19 23:03 Total Bilirubin 0.40 mg/dL (0.1-1.2) 04/21/19 23:03 AST 26 units/L (5-40) 04/21/19 23:03 ALT 17 units/L (7-56) 04/21/19 23:03 Alkaline Phosphatase 85 units/L (35-129) 04/21/19 23:03 Total Creatine Kinase 74 units/L (55-170) 04/21/19 23:03 Troponin T < 0.010 ng/mL (0.00-0.029) 04/21/19 23:03 Total Protein 6.6 g/dL (6.3-8.2) 04/21/19 23:03 Albumin 3.2 g/dL (3.9-5) L 04/21/19 23:03 Albumin/Globulin Ratio 0.9 % 04/21/19 23:03 TSH 0.206 mlU/mL (0.270-4.200) L 04/21/19 23:03 Urine Color Yellow (Yellow) 04/21/19 23:04 Urine Turbidity Cloudy (Clear) 04/21/19 23:04 Urine pH 5.0 (5.0-7.0) 04/21/19 23:04 Ur Specific [place] 1.027 (1.003-1.030) 04/21/19 23:04 Urine Protein 100 mg/dl mg/dL (Negative) 04/21/19 23:04 Urine Glucose (UA) Neg mg/dL (Negative) 04/21/19 23:04 Urine Ketones 20 mg/dL (Negative) 04/21/19 23:04 Urine Blood Neg (Negative) 04/21/19 23:04 Urine Nitrite Neg (Negative) 04/21/19 23:04 Urine Bilirubin Neg (Negative) 04/21/19 23:04 Urine Urobilinogen < 2.0 mg/dL (<2.0) 04/21/19 23:04 Ur Leukocyte Esterase Neg (Negative) 04/21/19 23:04 Urine WBC (Auto) 7.0 /HPF (0.0-6.0) H 04/21/19 23:04 Urine RBC (Auto) 74.0 /HPF (0.0-6.0) 04/21/19 23:04 U Epithel Cells (Auto) < 1.0 /HPF (0-13.0) 04/21/19 23:04 Urine Bacteria (Auto) 1+ /HPF (Negative) 04/21/19 23:04 Amorphous Crystals Few 04/21/19 23:04 Urine Mucus 1+ /HPF 04/21/19 23:04 Influenza A (Rapid) Negative (Negative) 04/21/19 00:26 Influenza B (Rapid) Negative (Negative) 04/21/19 00:26 Active Medications - Current Medications Current Medications: Generic Name Dose Route Start Last Admin Trade Name Freq PRN Reason Stop Dose Admin Acetaminophen 650 mg 04/22/19 00:49 Tylenol PO Q4H PRN Pain MILD(1-3)/Fever >100.5/HONG Albuterol 2.5 mg 04/22/19 00:49 04/23/19 09:51 Proventil IH 2.5 mg Q3HRT PRN Administration Shortness Of Breath Albuterol/Ipratropium 1 ampul 04/22/19 02:00 04/23/19 20:12 Duoneb *Not For Prn Use* IH 1 ampul Q6HRT ELOISE Administration Budesonide 0.5 mg 04/22/19 08:00 04/23/19 20:12 Pulmicort IH 0.5 mg Q12HRT ELOISE Administration Buspirone HCl 15 mg 04/22/19 10:00 04/23/19 09:59 Buspar PO 10 mg BID ELOISE Administration Dextrose 0 ml 04/22/19 00:49 D50w (25gm) Syringe IV Q30MIN PRN Hypoglycemia Protocol Docusate Sodium 100 mg 04/22/19 10:00 04/23/19 09:59 Colace PO 100 mg BID ELOISE Administration Heparin Sodium (Porcine) 5,000 unit 04/22/19 10:00 04/23/19 10:00 Heparin SUB-Q 5,000 unit Q12HR ELOISE Administration Levofloxacin/Dextrose 500 mg in 100 mls @ 100 mls/hr 04/22/19 10:00 04/23/19 10:00 Levaquin 500mg/100ml IV 100 mls/hr Q24HR ELOISE Administration Protocol Insulin Human Lispro 0 unit 04/22/19 07:30 04/23/19 18:12 Humalog SUB-Q 2 unit ACHS ELOISE Administration Protocol Melatonin 10 mg 04/22/19 22:00 04/22/19 21:36 Melatonin PO 10 mg QHS ELOISE Administration Metformin HCl 500 mg 04/22/19 08:00 04/23/19 18:14 Glucophage PO 500 mg BIDDIAB ELOISE Administration Methylprednisolone Sodium Succinate 80 mg 04/22/19 06:00 04/23/19 15:44 Solu-Medrol IV 80 mg Q8HR ELOISE Administration Ondansetron HCl 4 mg 04/22/19 00:49 Zofran IV Q8H PRN Nausea And Vomiting Oxycodone/Acetaminophen 1 tab 04/22/19 00:49 04/23/19 20:33 Percocet 5/325 PO 1 tab Q6H PRN Administration Pain, Moderate (4-6) Sodium Chloride 10 ml 04/22/19 10:00 04/23/19 15:44 Sodium Chloride Flush Syringe 10 Ml IV 10 ml BID ELOISE Administration Sodium Chloride 10 ml 04/22/19 00:49 Sodium Chloride Flush Syringe 10 Ml IV PRN PRN LINE FLUSH Nutrition/Malnutrition Assess - Dietary Evaluation Nutrition/Malnutrition Findings: Nutrition Notes Start: 04/22/19 11:37 Freq: Status: Active Protocol: Document 04/22/19 11:37 CW (Rec: 04/22/19 11:48 CW [email or web address]) Co-Sign 04/22/19 11:37 LP Nutrition Notes Need for Assessment generated from: MD Order Initial or Follow up Assessment Current Diagnosis COPD,Diabetes,Respiratory Failure,Hyperlipidemia Other Pertinent Diagnosis SIRS, A fib, Substance dependence Current Diet Cardiac Consistent CHO Labs/Tests POC BG 178 HgbA1c 7.6 Pertinent Medications Glucophage Humalog Solu-Medrol Colace Percocet Height 5 ft 8 in Weight 95.3 kg Usual Body Weight 91.4 kg [place] Body Weight (kg) 70.00 BMI 31.9 Weight change and time frame Wt gain noted Weight Status Obese Subjective/Other Information MD consult for malnutrition. Pt lethargic and mildly responsive during visit. Pt stated that UBW is 201 lbs, indicating wt gain. Pt currently eating 75% of meals. D/T elevated HgbA1c, Pt is a candidate for diet edu R/T DM management Burn Absent Trauma Absent GI Symptoms Constipation Current % PO Good (75-100%) Minimum of two criteria No physical signs of malnutrition #1 Nutrition Diagnosis Food and nutrition-related knowledge deficit Etiology Lack of diet education related to DM As Evidenced by Signs and Symptoms Pt needing diet edu D/T HgbA1c of 7.6 Is patient on ventilator? No Is Patient Ambulatory and/or Out of Bed No REE-([facility]-confined to bed) 2083.716 Kcal/Kg value to use for calculation 16 Approximate Energy Requirements Using 1525 kcal/Kg Calculation Used for Recommendations Kcal/kg Additional Notes protein needs: 66 - 83 g (0.8 - 1 g/kgAdBW; AdBW: 83 kg) Fluid needs: 1 ml/kcal Nutrition Intervention Change Diet Order: Continue cardiac consistent CHO Goal #1 Meet at least 75% of kcal/ protein needs Goal #2 Diet education regarding DM Anticipated Discharge Needs: Cardiac Consistent CHO diet Follow-Up By: 04/26/19 Additional Comments F/U DM diet education and stable PO intakes
[2019-04-23] MEDS: MELATONIN 5 MG TAB PO SCH (22:13)
[2019-04-24] MEDS: oxyCODONE /ACETAMINOPHEN 5-325MG TAB PO PRN ×4 (02:26→20:33)
[2019-04-24] MEDS: IPRATROPIUM/ALBUTEROL SULFATE 3 ML AMPUL.NEB IH SCH ×4 (02:30→20:40)
[2019-04-24] MEDS: methylPREDNISolone Sod Succinate 40 MG/1 ML INJ IV SCH ×4 (06:44→22:10)
[2019-04-24] MEDS: INSULIN LISPRO 100 UNIT/ML SUB-Q SCH ×4 (08:30→23:18)
[2019-04-24] MEDS: metFORMIN 500 MG TAB PO SCH ×2 (08:37→17:26)
[2019-04-24] MEDS: BUDESONIDE 0.5 MG/2 ML NEBU IH SCH ×2 (08:53→20:40)
[2019-04-24] MEDS: busPIRone 5 MG TAB PO SCH ×2 (10:00→22:10)
[2019-04-24] MEDS: DOCUSATE SODIUM 100 MG CAP PO SCH ×2 (11:02→22:11)
[2019-04-24] MEDS: HEPARIN 5,000 UNIT/1 ML VIAL SUB-Q SCH ×2 (11:03→22:12)
--- NOTE | 2019-04-24 12:02 | Progress Note ---
Assessment and Plan Assessment and plan: We will start tapering steroid dose Ambulate as tolerated Optimize medications Possible discharge back to SNF tomorrow if stable --Acute bronchitis/pneumonitis Levaquin, bronchodilators,o2 --Acute on chronic hypoxic respiratory failure; Requiring BiPAP, patient is on home oxygen Nebulizers, IV steroids, inhalation steroids --Acute exacerbation of COPD; the cause of acute respiratory failure Oxygen, nebs, steroids, inhalers, --Upper respiratory symptoms; Mild improvement, influenza AB- --Type 2 diabetes mellitus; Accu-Chek sliding scale coverage ADA diet, insulin A1c 7.9 --Moderate malnutrition/hypoalbuminemia Nutrition supplements, Nutrition consult if needed --SIRS, Follow cultures, empiric antibiotics, IV fluids --DVT prophylaxis; heparin subcu --Obesity; BMI 31.9 Advised weight reduction when medically stable --Ongoing tobacco use; smoking cessation counseling Nicotine patch as needed --Recreational drug use; alcohol, marijuana Advised to quit --Full CODE STATUS; Disposition; optimize medications Discharge home when medically stable Plan of care reviewed with the patient and his nurse History Interval history: Patient feels slightly better Continues to have shortness of breath on ambulation Patient already has home oxygen Cough significantly improved Continues to have body pains Vital signs noted Hospitalist Physical - Constitutional Vitals: Temp Pulse Resp BP Pulse Ox 98.3 F 94 H 25 H 139/83 95 04/24/19 05:16 04/24/19 05:16 04/24/19 05:16 04/24/19 05:16 04/24/19 05:16 General appearance: Present: mild distress, well-nourished, obese - EENT Eyes: Present: PERRL, EOM intact - Neck Neck: Present: supple, normal ROM - Respiratory Respiratory effort: normal Respiratory: bilateral: diminished, rhonchi, negative: rales, wheezing - Cardiovascular Rhythm: regular Heart Sounds: Present: S1 & S2 - Extremities Extremities: no ischemia, No edema - Abdominal General gastrointestinal: soft, non-tender, non-distended, normal bowel sounds - Integumentary Integumentary: Present: clear, warm - Psychiatric Psychiatric: appropriate mood/affect, cooperative - Neurologic Neurologic: CNII-XII intact, moves all extremities Results - Labs CBC & Chem 7: 04/23/19 07:06 04/23/19 07:06 Labs: Laboratory Last Values WBC 10.7 K/mm3 (4.5-11.0) 04/23/19 07:06 RBC 3.54 M/mm3 (3.65-5.03) L 04/23/19 07:06 Hgb 10.6 gm/dl (11.8-15.2) L 04/23/19 07:06 Hct 32.8 % (35.5-45.6) L 04/23/19 07:06 MCV 93 fl (84-94) 04/23/19 07:06 MCH 30 pg (28-32) 04/23/19 07:06 MCHC 32 % (32-34) 04/23/19 07:06 RDW 16.2 % (13.2-15.2) H 04/23/19 07:06 Plt Count 437 K/mm3 (140-440) 04/23/19 07:06 Lymph % (Auto) 6.8 % (13.4-35.0) L 04/23/19 07:06 [place] % (Auto) 8.0 % (0.0-7.3) H 04/23/19 07:06 Eos % (Auto) 0.0 % (0.0-4.3) 04/23/19 07:06 Baso % (Auto) 0.1 % (0.0-1.8) 04/23/19 07:06 Lymph # 0.7 K/mm3 (1.2-5.4) L 04/23/19 07:06 [place] # 0.9 K/mm3 (0.0-0.8) H 04/23/19 07:06 Eos # 0.0 K/mm3 (0.0-0.4) 04/23/19 07:06 Baso # 0.0 K/mm3 (0.0-0.1) 04/23/19 07:06 Seg Neutrophils % 85.1 % (40.0-70.0) H 04/23/19 07:06 Seg Neutrophils # 9.1 K/mm3 (1.8-7.7) H 04/23/19 07:06 PT 15.3 Sec. (12.2-14.9) H 04/21/19 23:03 INR 1.19 (0.87-1.13) H 04/21/19 23:03 ABG pH 7.340 pH Units (7.350-7.450) L 04/21/19 21:50 ABG pCO2 59.5 mm Hg 04/21/19 21:50 ABG pO2 102.6 mm Hg (80.0-90.0) H 04/21/19 21:50 ABG HCO3 31.4 mmol/L (20.0-26.0) H 04/21/19 21:50 ABG O2 Saturation 97.4 % (95.0-99.0) 04/21/19 21:50 ABG O2 Content 17.5 (0.0-44) 04/21/19 21:50 ABG Base Excess 4.1 mmol/L (-2.0-3.0) H 04/21/19 21:50 ABG Hemoglobin 13.0 gm/dl (14.0-18.0) L 04/21/19 21:50 ABG Carboxyhemoglobin 1.8 % (0.0-5.0) 04/21/19 21:50 ABG Methemoglobin 0.5 % (0.0-1.5) 04/21/19 21:50 Oxyhemoglobin 95.2 % (95.0-99.0) 04/21/19 21:50 FiO2 40 % 04/21/19 21:50 Sodium 143 mmol/L (137-145) 04/23/19 07:06 Potassium 4.6 mmol/L (3.6-5.0) D 04/23/19 07:06 Chloride 102.0 mmol/L (98-107) 04/23/19 07:06 Carbon Dioxide 27 mmol/L (22-30) 04/23/19 07:06 Anion Gap 19 mmol/L 04/23/19 07:06 BUN 17 mg/dL (9-20) 04/23/19 07:06 Creatinine 0.5 mg/dL (0.8-1.5) L 04/23/19 07:06 Estimated GFR > 60 ml/min 04/23/19 07:06 BUN/Creatinine Ratio 34 % 04/23/19 07:06 Glucose 159 mg/dL (75-100) H 04/23/19 07:06 POC Glucose 120 (70-105) H 04/24/19 11:42 Hemoglobin A1c 7.9 % (4-6) H 04/22/19 01:51 Lactic Acid 1.20 mmol/L (0.7-2.0) 04/22/19 00:58 Calcium 9.3 mg/dL (8.4-10.2) 04/23/19 07:06 Magnesium 2.30 mg/dL (1.7-2.3) 04/21/19 23:03 Total Bilirubin 0.40 mg/dL (0.1-1.2) 04/21/19 23:03 AST 26 units/L (5-40) 04/21/19 23:03 ALT 17 units/L (7-56) 04/21/19 23:03 Alkaline Phosphatase 85 units/L (35-129) 04/21/19 23:03 Total Creatine Kinase 74 units/L (55-170) 04/21/19 23:03 Troponin T < 0.010 ng/mL (0.00-0.029) 04/21/19 23:03 Total Protein 6.6 g/dL (6.3-8.2) 04/21/19 23:03 Albumin 3.2 g/dL (3.9-5) L 04/21/19 23:03 Albumin/Globulin Ratio 0.9 % 04/21/19 23:03 TSH 0.206 mlU/mL (0.270-4.200) L 04/21/19 23:03 Urine Color Yellow (Yellow) 04/21/19 23:04 Urine Turbidity Cloudy (Clear) 04/21/19 23:04 Urine pH 5.0 (5.0-7.0) 04/21/19 23:04 Ur Specific [place] 1.027 (1.003-1.030) 04/21/19 23:04 Urine Protein 100 mg/dl mg/dL (Negative) 04/21/19 23:04 Urine Glucose (UA) Neg mg/dL (Negative) 04/21/19 23:04 Urine Ketones 20 mg/dL (Negative) 04/21/19 23:04 Urine Blood Neg (Negative) 04/21/19 23:04 Urine Nitrite Neg (Negative) 04/21/19 23:04 Urine Bilirubin Neg (Negative) 04/21/19 23:04 Urine Urobilinogen < 2.0 mg/dL (<2.0) 04/21/19 23:04 Ur Leukocyte Esterase Neg (Negative) 04/21/19 23:04 Urine WBC (Auto) 7.0 /HPF (0.0-6.0) H 04/21/19 23:04 Urine RBC (Auto) 74.0 /HPF (0.0-6.0) 04/21/19 23:04 U Epithel Cells (Auto) < 1.0 /HPF (0-13.0) 04/21/19 23:04 Urine Bacteria (Auto) 1+ /HPF (Negative) 04/21/19 23:04 Amorphous Crystals Few 04/21/19 23:04 Urine Mucus 1+ /HPF 04/21/19 23:04 Influenza A (Rapid) Negative (Negative) 04/21/19 00:26 Influenza B (Rapid) Negative (Negative) 04/21/19 00:26 Active Medications - Current Medications Current Medications: Generic Name Dose Route Start Last Admin Trade Name Freq PRN Reason Stop Dose Admin Acetaminophen 650 mg 04/22/19 00:49 Tylenol PO Q4H PRN Pain MILD(1-3)/Fever >100.5/HONG Albuterol 2.5 mg 04/22/19 00:49 04/23/19 09:51 Proventil IH 2.5 mg Q3HRT PRN Administration Shortness Of Breath Albuterol/Ipratropium 1 ampul 04/22/19 02:00 04/24/19 08:53 Duoneb *Not For Prn Use* IH 1 ampul Q6HRT ELOISE Administration Budesonide 0.5 mg 04/22/19 08:00 04/24/19 08:53 Pulmicort IH 0.5 mg Q12HRT ELOISE Administration Buspirone HCl 15 mg 04/22/19 10:00 04/24/19 10:00 Buspar PO 15 mg BID ELOISE Administration Dextrose 0 ml 04/22/19 00:49 D50w (25gm) Syringe IV Q30MIN PRN Hypoglycemia Protocol Docusate Sodium 100 mg 04/22/19 10:00 04/24/19 11:02 Colace PO 100 mg BID ELOISE Administration Heparin Sodium (Porcine) 5,000 unit 04/22/19 10:00 04/24/19 11:03 Heparin SUB-Q 5,000 unit Q12HR ELOISE Administration Levofloxacin/Dextrose 500 mg in 100 mls @ 100 mls/hr 04/22/19 10:00 04/24/19 11:01 Levaquin 500mg/100ml IV 100 mls/hr Q24HR ELOISE Administration Protocol Insulin Human Lispro 0 unit 04/22/19 07:30 04/24/19 08:30 Humalog SUB-Q 2 unit ACHS ELOISE Administration Protocol Melatonin 10 mg 04/22/19 22:00 04/23/19 22:13 Melatonin PO 10 mg QHS ELOISE Administration Metformin HCl 500 mg 04/22/19 08:00 04/24/19 08:37 Glucophage PO 500 mg BIDDIAB ELOISE Administration Methylprednisolone Sodium Succinate 80 mg 04/22/19 06:00 04/24/19 08:32 Solu-Medrol IV Not Given Q8HR ELOISE Ondansetron HCl 4 mg 04/22/19 00:49 Zofran IV Q8H PRN Nausea And Vomiting Oxycodone/Acetaminophen 1 tab 04/22/19 00:49 04/24/19 08:37 Percocet 5/325 PO 1 tab Q6H PRN Administration Pain, Moderate (4-6) Sodium Chloride 10 ml 04/22/19 10:00 04/24/19 11:01 Sodium Chloride Flush Syringe 10 Ml IV 10 ml BID ELOISE Administration Sodium Chloride 10 ml 04/22/19 00:49 Sodium Chloride Flush Syringe 10 Ml IV PRN PRN LINE FLUSH Nutrition/Malnutrition Assess - Dietary Evaluation Nutrition/Malnutrition Findings: Nutrition Notes Start: 04/22/19 11:37 Freq: Status: Active Protocol: Document 04/22/19 11:37 CW (Rec: 04/22/19 11:48 CW [email or web address]) Co-Sign 04/22/19 11:37 LP Nutrition Notes Need for Assessment generated from: MD Order Initial or Follow up Assessment Current Diagnosis COPD,Diabetes,Respiratory Failure,Hyperlipidemia Other Pertinent Diagnosis SIRS, A fib, Substance dependence Current Diet Cardiac Consistent CHO Labs/Tests POC BG 178 HgbA1c 7.6 Pertinent Medications Glucophage Humalog Solu-Medrol Colace Percocet Height 5 ft 8 in Weight 95.3 kg Usual Body Weight 91.4 kg [place] Body Weight (kg) 70.00 BMI 31.9 Weight change and time frame Wt gain noted Weight Status Obese Subjective/Other Information MD consult for malnutrition. Pt lethargic and mildly responsive during visit. Pt stated that UBW is 201 lbs, indicating wt gain. Pt currently eating 75% of meals. D/T elevated HgbA1c, Pt is a candidate for diet edu R/T DM management Burn Absent Trauma Absent GI Symptoms Constipation Current % PO Good (75-100%) Minimum of two criteria No physical signs of malnutrition #1 Nutrition Diagnosis Food and nutrition-related knowledge deficit Etiology Lack of diet education related to DM As Evidenced by Signs and Symptoms Pt needing diet edu D/T HgbA1c of 7.6 Is patient on ventilator? No Is Patient Ambulatory and/or Out of Bed No REE-([facility]-confined to bed) 3.716 Kcal/Kg value to use for calculation 16 Approximate Energy Requirements Using 1525 kcal/Kg Calculation Used for Recommendations Kcal/kg Additional Notes protein needs: 66 - 83 g (0.8 - 1 g/kgAdBW; AdBW: 83 kg) Fluid needs: 1 ml/kcal Nutrition Intervention Change Diet Order: Continue cardiac consistent CHO Goal #1 Meet at least 75% of kcal/ protein needs Goal #2 Diet education regarding DM Anticipated Discharge Needs: Cardiac Consistent CHO diet Follow-Up By: 04/26/19 Additional Comments F/U DM diet education and stable PO intakes
[2019-04-24] MEDS: ALPRAZolam 0.25 MG TAB PO PRN (14:57)
[2019-04-24] MEDS: MELATONIN 5 MG TAB PO SCH (22:11)
[2019-04-25] MEDS: IPRATROPIUM/ALBUTEROL SULFATE 3 ML AMPUL.NEB IH SCH ×4 (02:00→20:14)
[2019-04-25] MEDS: oxyCODONE /ACETAMINOPHEN 5-325MG TAB PO PRN ×3 (02:20→13:41)
[2019-04-25] MEDS: ALPRAZolam 0.25 MG TAB PO PRN ×3 (02:46→18:02)
[2019-04-25] MEDS: methylPREDNISolone Sod Succinate 40 MG/1 ML INJ IV SCH ×3 (06:00→21:46)
[2019-04-25] MEDS: INSULIN LISPRO 100 UNIT/ML SUB-Q SCH ×4 (07:49→22:02)
[2019-04-25] MEDS: metFORMIN 500 MG TAB PO SCH ×2 (08:12→17:08)
--- NOTE | 2019-04-25 08:59 | Progress Note ---
Assessment and Plan Assessment and plan: Patient feels slightly better Does not want to go back to his [facility] Requests a different facility We will start tapering steroid dose Ambulate as tolerated Optimize medications. Case management to assist with discharge planning --Acute bronchitis/pneumonitis Levaquin, bronchodilators,o2 --Acute on chronic hypoxic respiratory failure; Requiring BiPAP, patient is on home oxygen Nebulizers, IV steroids, inhalation steroids --Acute exacerbation of COPD; the cause of acute respiratory failure Oxygen, nebs, steroids, inhalers, --Upper respiratory symptoms; Mild improvement, influenza AB- --Type 2 diabetes mellitus; Accu-Chek sliding scale coverage ADA diet, insulin A1c 7.9 --Moderate malnutrition/hypoalbuminemia Nutrition supplements, Nutrition consult if needed --SIRS, Follow cultures, empiric antibiotics, IV fluids --DVT prophylaxis; heparin subcu --Obesity; BMI 31.9 Advised weight reduction when medically stable --Ongoing tobacco use; smoking cessation counseling Nicotine patch as needed --Recreational drug use; alcohol, marijuana Advised to quit --Full CODE STATUS; Disposition; optimize medications Discharge home when medically stable Plan of care reviewed with the patient and his nurse History Interval history: Patient seen and examined at the bedside today Patient's chart and medications reviewed Hospitalist Physical - Constitutional Vitals: Temp Pulse Resp BP Pulse Ox 98.4 F 103 H 20 134/86 96 04/25/19 04:36 04/25/19 04:36 04/25/19 04:36 04/25/19 04:36 04/25/19 04:36 General appearance: Present: mild distress, well-nourished, obese - EENT Eyes: Present: PERRL, EOM intact - Respiratory Respiratory effort: normal Respiratory: bilateral: CTA, wheezing, negative: diminished, rales, rhonchi - Cardiovascular Rhythm: regular Heart Sounds: Present: S1 & S2 - Extremities Extremities: no ischemia, abnormal (Chronic changes) Extremity abnormal: edema - Abdominal General gastrointestinal: soft, non-tender, non-distended, normal bowel sounds - Integumentary Integumentary: Present: clear, warm (Chronic changes) - Psychiatric Psychiatric: appropriate mood/affect, cooperative - Neurologic Neurologic: moves all extremities Results - Labs CBC & Chem 7: 04/23/19 07:06 04/23/19 07:06 Labs: Laboratory Last Values WBC 10.7 K/mm3 (4.5-11.0) 04/23/19 07:06 RBC 3.54 M/mm3 (3.65-5.03) L 04/23/19 07:06 Hgb 10.6 gm/dl (11.8-15.2) L 04/23/19 07:06 Hct 32.8 % (35.5-45.6) L 04/23/19 07:06 MCV 93 fl (84-94) 04/23/19 07:06 MCH 30 pg (28-32) 04/23/19 07:06 MCHC 32 % (32-34) 04/23/19 07:06 RDW 16.2 % (13.2-15.2) H 04/23/19 07:06 Plt Count 437 K/mm3 (140-440) 04/23/19 07:06 Lymph % (Auto) 6.8 % (13.4-35.0) L 04/23/19 07:06 [place] % (Auto) 8.0 % (0.0-7.3) H 04/23/19 07:06 Eos % (Auto) 0.0 % (0.0-4.3) 04/23/19 07:06 Baso % (Auto) 0.1 % (0.0-1.8) 04/23/19 07:06 Lymph # 0.7 K/mm3 (1.2-5.4) L 04/23/19 07:06 [place] # 0.9 K/mm3 (0.0-0.8) H 04/23/19 07:06 Eos # 0.0 K/mm3 (0.0-0.4) 04/23/19 07:06 Baso # 0.0 K/mm3 (0.0-0.1) 04/23/19 07:06 Seg Neutrophils % 85.1 % (40.0-70.0) H 04/23/19 07:06 Seg Neutrophils # 9.1 K/mm3 (1.8-7.7) H 04/23/19 07:06 PT 15.3 Sec. (12.2-14.9) H 04/21/19 23:03 INR 1.19 (0.87-1.13) H 04/21/19 23:03 ABG pH 7.340 pH Units (7.350-7.450) L 04/21/19 21:50 ABG pCO2 59.5 mm Hg 04/21/19 21:50 ABG pO2 102.6 mm Hg (80.0-90.0) H 04/21/19 21:50 ABG HCO3 31.4 mmol/L (20.0-26.0) H 04/21/19 21:50 ABG O2 Saturation 97.4 % (95.0-99.0) 04/21/19 21:50 ABG O2 Content 17.5 (0.0-44) 04/21/19 21:50 ABG Base Excess 4.1 mmol/L (-2.0-3.0) H 04/21/19 21:50 ABG Hemoglobin 13.0 gm/dl (14.0-18.0) L 04/21/19 21:50 ABG Carboxyhemoglobin 1.8 % (0.0-5.0) 04/21/19 21:50 ABG Methemoglobin 0.5 % (0.0-1.5) 04/21/19 21:50 Oxyhemoglobin 95.2 % (95.0-99.0) 04/21/19 21:50 FiO2 40 % 04/21/19 21:50 Sodium 143 mmol/L (137-145) 04/23/19 07:06 Potassium 4.6 mmol/L (3.6-5.0) D 04/23/19 07:06 Chloride 102.0 mmol/L (98-107) 04/23/19 07:06 Carbon Dioxide 27 mmol/L (22-30) 04/23/19 07:06 Anion Gap 19 mmol/L 04/23/19 07:06 BUN 17 mg/dL (9-20) 04/23/19 07:06 Creatinine 0.5 mg/dL (0.8-1.5) L 04/23/19 07:06 Estimated GFR > 60 ml/min 04/23/19 07:06 BUN/Creatinine Ratio 34 % 04/23/19 07:06 Glucose 159 mg/dL (75-100) H 04/23/19 07:06 POC Glucose 138 (70-105) H 04/25/19 07:44 Hemoglobin A1c 7.9 % (4-6) H 04/22/19 01:51 Lactic Acid 1.20 mmol/L (0.7-2.0) 04/22/19 00:58 Calcium 9.3 mg/dL (8.4-10.2) 04/23/19 07:06 Magnesium 2.30 mg/dL (1.7-2.3) 04/21/19 23:03 Total Bilirubin 0.40 mg/dL (0.1-1.2) 04/21/19 23:03 AST 26 units/L (5-40) 04/21/19 23:03 ALT 17 units/L (7-56) 04/21/19 23:03 Alkaline Phosphatase 85 units/L (35-129) 04/21/19 23:03 Total Creatine Kinase 74 units/L (55-170) 04/21/19 23:03 Troponin T < 0.010 ng/mL (0.00-0.029) 04/21/19 23:03 Total Protein 6.6 g/dL (6.3-8.2) 04/21/19 23:03 Albumin 3.2 g/dL (3.9-5) L 04/21/19 23:03 Albumin/Globulin Ratio 0.9 % 04/21/19 23:03 TSH 0.206 mlU/mL (0.270-4.200) L 04/21/19 23:03 Urine Color Yellow (Yellow) 04/21/19 23:04 Urine Turbidity Cloudy (Clear) 04/21/19 23:04 Urine pH 5.0 (5.0-7.0) 04/21/19 23:04 Ur Specific [place] 1.027 (1.003-1.030) 04/21/19 23:04 Urine Protein 100 mg/dl mg/dL (Negative) 04/21/19 23:04 Urine Glucose (UA) Neg mg/dL (Negative) 04/21/19 23:04 Urine Ketones 20 mg/dL (Negative) 04/21/19 23:04 Urine Blood Neg (Negative) 04/21/19 23:04 Urine Nitrite Neg (Negative) 04/21/19 23:04 Urine Bilirubin Neg (Negative) 04/21/19 23:04 Urine Urobilinogen < 2.0 mg/dL (<2.0) 04/21/19 23:04 Ur Leukocyte Esterase Neg (Negative) 04/21/19 23:04 Urine WBC (Auto) 7.0 /HPF (0.0-6.0) H 04/21/19 23:04 Urine RBC (Auto) 74.0 /HPF (0.0-6.0) 04/21/19 23:04 U Epithel Cells (Auto) < 1.0 /HPF (0-13.0) 04/21/19 23:04 Urine Bacteria (Auto) 1+ /HPF (Negative) 04/21/19 23:04 Amorphous Crystals Few 04/21/19 23:04 Urine Mucus 1+ /HPF 04/21/19 23:04 Influenza A (Rapid) Negative (Negative) 04/21/19 00:26 Influenza B (Rapid) Negative (Negative) 04/21/19 00:26 Active Medications - Current Medications Current Medications: Generic Name Dose Route Start Last Admin Trade Name Freq PRN Reason Stop Dose Admin Acetaminophen 650 mg 04/22/19 00:49 Tylenol PO Q4H PRN Pain MILD(1-3)/Fever >100.5/HONG Albuterol 2.5 mg 04/22/19 00:49 04/23/19 09:51 Proventil IH 2.5 mg Q3HRT PRN Administration Shortness Of Breath Albuterol/Ipratropium 1 ampul 04/22/19 02:00 04/25/19 02:00 Duoneb *Not For Prn Use* IH 1 ampul Q6HRT ELOISE Administration Alprazolam 0.25 mg 04/24/19 14:54 04/25/19 02:46 Xanax PO 0.25 mg Q8H PRN Administration Anxiety Budesonide 0.5 mg 04/22/19 08:00 04/24/19 20:40 Pulmicort IH 0.5 mg Q12HRT ELOISE Administration Buspirone HCl 15 mg 04/22/19 10:00 04/24/19 22:10 Buspar PO 15 mg BID ELOISE Administration Dextrose 0 ml 04/22/19 00:49 D50w (25gm) Syringe IV Q30MIN PRN Hypoglycemia Protocol Docusate Sodium 100 mg 04/22/19 10:00 04/24/19 22:11 Colace PO 100 mg BID ELOISE Administration Heparin Sodium (Porcine) 5,000 unit 04/22/19 10:00 04/24/19 22:12 Heparin SUB-Q 5,000 unit Q12HR ELOISE Administration Levofloxacin/Dextrose 500 mg in 100 mls @ 100 mls/hr 04/22/19 10:00 04/24/19 11:01 Levaquin 500mg/100ml IV 100 mls/hr Q24HR ELOISE Administration Protocol Insulin Human Lispro 0 unit 04/22/19 07:30 04/25/19 07:49 Humalog SUB-Q Not Given ACHS ELOISE Protocol Melatonin 10 mg 04/22/19 22:00 04/24/19 22:11 Melatonin PO 10 mg QHS ELOISE Administration Metformin HCl 500 mg 04/22/19 08:00 04/25/19 08:12 Glucophage PO 500 mg BIDDIAB ELOISE Administration Methylprednisolone Sodium Succinate 80 mg 04/22/19 06:00 04/25/19 06:00 Solu-Medrol IV 80 mg Q8HR ELOISE Administration Ondansetron HCl 4 mg 04/22/19 00:49 Zofran IV Q8H PRN Nausea And Vomiting Oxycodone/Acetaminophen 1 tab 04/22/19 00:49 04/25/19 08:07 Percocet 5/325 PO 1 tab Q6H PRN Administration Pain, Moderate (4-6) Sodium Chloride 10 ml 04/22/19 10:00 04/24/19 22:12 Sodium Chloride Flush Syringe 10 Ml IV 10 ml BID ELOISE Administration Sodium Chloride 10 ml 04/22/19 00:49 Sodium Chloride Flush Syringe 10 Ml IV PRN PRN LINE FLUSH Nutrition/Malnutrition Assess - Dietary Evaluation Nutrition/Malnutrition Findings: Nutrition Notes Start: 04/22/19 11:37 Freq: Status: Active Protocol: Document 04/22/19 11:37 CW (Rec: 04/22/19 11:48 CW [id number]) Co-Sign 04/22/19 11:37 LP Nutrition Notes Need for Assessment generated from: MD Order Initial or Follow up Assessment Current Diagnosis COPD,Diabetes,Respiratory Failure,Hyperlipidemia Other Pertinent Diagnosis SIRS, A fib, Substance dependence Current Diet Cardiac Consistent CHO Labs/Tests POC BG 178 HgbA1c 7.6 Pertinent Medications Glucophage Humalog Solu-Medrol Colace Percocet Height 5 ft 8 in Weight 95.3 kg Usual Body Weight 91.4 kg [place] Body Weight (kg) 70.00 BMI 31.9 Weight change and time frame Wt gain noted Weight Status Obese Subjective/Other Information MD consult for malnutrition. Pt lethargic and mildly responsive during visit. Pt stated that UBW is 201 lbs, indicating wt gain. Pt currently eating 75% of meals. D/T elevated HgbA1c, Pt is a candidate for diet edu R/T DM management Burn Absent Trauma Absent GI Symptoms Constipation Current % PO Good (75-100%) Minimum of two criteria No physical signs of malnutrition #1 Nutrition Diagnosis Food and nutrition-related knowledge deficit Etiology Lack of diet education related to DM As Evidenced by Signs and Symptoms Pt needing diet edu D/T HgbA1c of 7.6 Is patient on ventilator? No Is Patient Ambulatory and/or Out of Bed No REE-([facility]-confined to bed) 2083.716 Kcal/Kg value to use for calculation 16 Approximate Energy Requirements Using 1525 kcal/Kg Calculation Used for Recommendations Kcal/kg Additional Notes protein needs: 66 - 83 g (0.8 - 1 g/kgAdBW; AdBW: 83 kg) Fluid needs: 1 ml/kcal Nutrition Intervention Change Diet Order: Continue cardiac consistent CHO Goal #1 Meet at least 75% of kcal/ protein needs Goal #2 Diet education regarding DM Anticipated Discharge Needs: Cardiac Consistent CHO diet Follow-Up By: 04/26/19 Additional Comments F/U DM diet education and stable PO intakes
[2019-04-25] MEDS: BUDESONIDE 0.5 MG/2 ML NEBU IH SCH ×2 (09:52→20:14)
[2019-04-25] MEDS: busPIRone 5 MG TAB PO SCH ×2 (09:56→21:46)
[2019-04-25] MEDS: HEPARIN 5,000 UNIT/1 ML VIAL SUB-Q SCH ×2 (09:57→21:48)
[2019-04-25] MEDS: DOCUSATE SODIUM 100 MG CAP PO SCH ×3 (09:57→21:47)
[2019-04-25] MEDS: MELATONIN 5 MG TAB PO SCH (21:53)
[2019-04-26] MEDS: IPRATROPIUM/ALBUTEROL SULFATE 3 ML AMPUL.NEB IH SCH ×4 (02:00→20:13)
[2019-04-26] MEDS: ALBUTEROL 2.5 MG/3 ML NEBU IH PRN (04:20)
[2019-04-26] MEDS: methylPREDNISolone Sod Succinate 40 MG/1 ML INJ IV SCH ×3 (05:58→21:01)
[2019-04-26] MEDS: oxyCODONE /ACETAMINOPHEN 5-325MG TAB PO PRN ×3 (06:46→18:57)
[2019-04-26] MEDS: BUDESONIDE 0.5 MG/2 ML NEBU IH SCH ×2 (08:23→20:13)
[2019-04-26] MEDS: HEPARIN 5,000 UNIT/1 ML VIAL SUB-Q SCH ×2 (09:19→21:01)
[2019-04-26] MEDS: DOCUSATE SODIUM 100 MG CAP PO SCH ×2 (09:20→21:01)
[2019-04-26] MEDS: ALPRAZolam 0.25 MG TAB PO PRN ×3 (09:20→23:00)
[2019-04-26] MEDS: busPIRone 5 MG TAB PO SCH ×2 (09:20→21:00)
[2019-04-26] MEDS: metFORMIN 500 MG TAB PO SCH ×2 (09:27→17:27)
[2019-04-26] MEDS: INSULIN LISPRO 100 UNIT/ML SUB-Q SCH ×4 (09:30→22:58)
--- NOTE | 2019-04-26 12:22 | Discharge Summary ---
Providers - Providers Date of Admission: 04/22/19 01:55 Date of discharge: 04/26/19 Attending physician: JAG LEOS 04/22/19 00:54 Consult to Dietitian/Nutrition [CONS] Routine Physician Instructions: Reason For Exam: Reason for Consult: Malnutrition 04/22/19 13:58 Physical Therapy Evaluation and Treat [CONS] Routine Comment: From [facility] Reason For Exam: Generalized Weakness Primary care physician: CDL DRIVER Hospitalization Condition: Serious Hospital course: -Acute bronchitis/pneumonitis Levaquin, bronchodilators,o2 --Acute on chronic hypoxic respiratory failure; Requiring BiPAP, patient is on home oxygen Nebulizers, IV steroids, inhalation steroids --Acute exacerbation of COPD; the cause of acute respiratory failure Oxygen, nebs, steroids, inhalers, --Upper respiratory symptoms; Mild improvement, influenza AB- --Type 2 diabetes mellitus; Accu-Chek sliding scale coverage ADA diet, insulin A1c 7.9 --Moderate malnutrition/hypoalbuminemia Nutrition supplements, Nutrition consult if needed --SIRS, Follow cultures, empiric antibiotics, IV fluids --DVT prophylaxis; heparin subcu --Obesity; BMI 31.9 Advised weight reduction when medically stable --Ongoing tobacco use; smoking cessation counseling Nicotine patch as needed --Recreational drug use; alcohol, marijuana Advised to quit --Full CODE STATUS; Disposition; optimize medications Discharge home when medically stable Plan of care reviewed with the patient and his nurse Disposition: DC-30 STILL A PATIENT Exam - Constitutional Vitals: Temp Pulse Resp BP Pulse Ox 98.2 F 110 H 20 147/80 92 04/26/19 06:07 04/26/19 08:23 04/26/19 08:23 04/26/19 06:07 04/26/19 08:22 Plan Follow up with: RODRIGO RICO MD [Primary Care Provider] - 3-5 Days
--- NOTE | 2019-04-26 12:23 | Progress Note ---
Assessment and Plan Assessment and plan: 63-year-old male patient resident of [facility] was admitted with acute on chronic respiratory failure secondary to acute exacerbation of COPD and systolic congestive heart failure.Patient symptoms significantly improved initially wanted to discharge back to care home facility on tapering dose of steroids and antibiotics. Patient refused and appealed the discharge. --Acute on chronic hypoxic respiratory failure; Requiring BiPAP, patient is on home oxygen Nebulizers, IV steroids, inhalation steroids --Acute bronchitis/pneumonitis Levaquin, bronchodilators,o2 --Acute exacerbation of COPD; causing acute respiratory failure Oxygen, nebs, steroids, inhalers, supportive care --Type 2 diabetes mellitus; Accu-Chek sliding scale coverage ADA diet, insulin A1c 7.9 --Moderate malnutrition/hypoalbuminemia Nutrition supplements, Nutrition consult if needed --SIRS: Follow cultures, empiric antibiotics, --DVT prophylaxis; heparin subcu --Obesity; BMI 31.9 Advised weight reduction when medically stable --Ongoing tobacco use; smoking cessation counseling Nicotine patch as needed --Recreational drug use; alcohol, marijuana Advised to quit --Full CODE STATUS; Patient is stable for discharge back to SNF However patient refused discharge and appealed Wants to go to a different [facility] Case management assisting with DC planning Disposition; patient appealed the discharge Plan of care reviewed with the patient and his nurse History Interval history: Patient was initially discharged to [facility], however he appealed the discharge and refused to go. Patient seen and examined medical records reviewed. Patient feels slightly better, alert and awake Vital signs reviewed,Alert awake oriented x3 Hospitalist Physical - Constitutional Vitals: Temp Pulse Resp BP Pulse Ox 98.2 F 110 H 20 147/80 92 04/26/19 06:07 04/26/19 08:23 04/26/19 08:23 04/26/19 06:07 04/26/19 08:22 General appearance: Present: no acute distress, well-nourished, obese - EENT Eyes: Present: PERRL, EOM intact - Neck Neck: Present: supple, normal ROM - Respiratory Respiratory effort: normal Respiratory: bilateral: diminished, wheezing, negative: rales, rhonchi - Cardiovascular Rhythm: regular Heart Sounds: Present: S1 & S2 - Extremities Extremities: no ischemia, No edema - Abdominal General gastrointestinal: soft, non-tender, non-distended, normal bowel sounds - Integumentary Integumentary: Present: clear, warm - Psychiatric Psychiatric: appropriate mood/affect, cooperative - Neurologic Neurologic: moves all extremities Results - Labs CBC & Chem 7: 04/23/19 07:06 04/23/19 07:06 Labs: Laboratory Last Values WBC 10.7 K/mm3 (4.5-11.0) 04/23/19 07:06 RBC 3.54 M/mm3 (3.65-5.03) L 04/23/19 07:06 Hgb 10.6 gm/dl (11.8-15.2) L 04/23/19 07:06 Hct 32.8 % (35.5-45.6) L 04/23/19 07:06 MCV 93 fl (84-94) 04/23/19 07:06 MCH 30 pg (28-32) 04/23/19 07:06 MCHC 32 % (32-34) 04/23/19 07:06 RDW 16.2 % (13.2-15.2) H 04/23/19 07:06 Plt Count 437 K/mm3 (140-440) 04/23/19 07:06 Lymph % (Auto) 6.8 % (13.4-35.0) L 04/23/19 07:06 [place] % (Auto) 8.0 % (0.0-7.3) H 04/23/19 07:06 Eos % (Auto) 0.0 % (0.0-4.3) 04/23/19 07:06 Baso % (Auto) 0.1 % (0.0-1.8) 04/23/19 07:06 Lymph # 0.7 K/mm3 (1.2-5.4) L 04/23/19 07:06 [place] # 0.9 K/mm3 (0.0-0.8) H 04/23/19 07:06 Eos # 0.0 K/mm3 (0.0-0.4) 04/23/19 07:06 Baso # 0.0 K/mm3 (0.0-0.1) 04/23/19 07:06 Seg Neutrophils % 85.1 % (40.0-70.0) H 04/23/19 07:06 Seg Neutrophils # 9.1 K/mm3 (1.8-7.7) H 04/23/19 07:06 PT 15.3 Sec. (12.2-14.9) H 04/21/19 23:03 INR 1.19 (0.87-1.13) H 04/21/19 23:03 ABG pH 7.340 pH Units (7.350-7.450) L 04/21/19 21:50 ABG pCO2 59.5 mm Hg 04/21/19 21:50 ABG pO2 102.6 mm Hg (80.0-90.0) H 04/21/19 21:50 ABG HCO3 31.4 mmol/L (20.0-26.0) H 04/21/19 21:50 ABG O2 Saturation 97.4 % (95.0-99.0) 04/21/19 21:50 ABG O2 Content 17.5 (0.0-44) 04/21/19 21:50 ABG Base Excess 4.1 mmol/L (-2.0-3.0) H 04/21/19 21:50 ABG Hemoglobin 13.0 gm/dl (14.0-18.0) L 04/21/19 21:50 ABG Carboxyhemoglobin 1.8 % (0.0-5.0) 04/21/19 21:50 ABG Methemoglobin 0.5 % (0.0-1.5) 04/21/19 21:50 Oxyhemoglobin 95.2 % (95.0-99.0) 04/21/19 21:50 FiO2 40 % 04/21/19 21:50 Sodium 143 mmol/L (137-145) 04/23/19 07:06 Potassium 4.6 mmol/L (3.6-5.0) D 04/23/19 07:06 Chloride 102.0 mmol/L (98-107) 04/23/19 07:06 Carbon Dioxide 27 mmol/L (22-30) 04/23/19 07:06 Anion Gap 19 mmol/L 04/23/19 07:06 BUN 17 mg/dL (9-20) 04/23/19 07:06 Creatinine 0.5 mg/dL (0.8-1.5) L 04/23/19 07:06 Estimated GFR > 60 ml/min 04/23/19 07:06 BUN/Creatinine Ratio 34 % 04/23/19 07:06 Glucose 159 mg/dL (75-100) H 04/23/19 07:06 POC Glucose 193 (70-105) H 04/26/19 12:00 Hemoglobin A1c 7.9 % (4-6) H 04/22/19 01:51 Lactic Acid 1.20 mmol/L (0.7-2.0) 04/22/19 00:58 Calcium 9.3 mg/dL (8.4-10.2) 04/23/19 07:06 Magnesium 2.30 mg/dL (1.7-2.3) 04/21/19 23:03 Total Bilirubin 0.40 mg/dL (0.1-1.2) 04/21/19 23:03 AST 26 units/L (5-40) 04/21/19 23:03 ALT 17 units/L (7-56) 04/21/19 23:03 Alkaline Phosphatase 85 units/L (35-129) 04/21/19 23:03 Total Creatine Kinase 74 units/L (55-170) 04/21/19 23:03 Troponin T < 0.010 ng/mL (0.00-0.029) 04/21/19 23:03 Total Protein 6.6 g/dL (6.3-8.2) 04/21/19 23:03 Albumin 3.2 g/dL (3.9-5) L 04/21/19 23:03 Albumin/Globulin Ratio 0.9 % 04/21/19 23:03 TSH 0.206 mlU/mL (0.270-4.200) L 04/21/19 23:03 Urine Color Yellow (Yellow) 04/21/19 23:04 Urine Turbidity Cloudy (Clear) 04/21/19 23:04 Urine pH 5.0 (5.0-7.0) 04/21/19 23:04 Ur Specific [place] 1.027 (1.003-1.030) 04/21/19 23:04 Urine Protein 100 mg/dl mg/dL (Negative) 04/21/19 23:04 Urine Glucose (UA) Neg mg/dL (Negative) 04/21/19 23:04 Urine Ketones 20 mg/dL (Negative) 04/21/19 23:04 Urine Blood Neg (Negative) 04/21/19 23:04 Urine Nitrite Neg (Negative) 04/21/19 23:04 Urine Bilirubin Neg (Negative) 04/21/19 23:04 Urine Urobilinogen < 2.0 mg/dL (<2.0) 04/21/19 23:04 Ur Leukocyte Esterase Neg (Negative) 04/21/19 23:04 Urine WBC (Auto) 7.0 /HPF (0.0-6.0) H 04/21/19 23:04 Urine RBC (Auto) 74.0 /HPF (0.0-6.0) 04/21/19 23:04 U Epithel Cells (Auto) < 1.0 /HPF (0-13.0) 04/21/19 23:04 Urine Bacteria (Auto) 1+ /HPF (Negative) 04/21/19 23:04 Amorphous Crystals Few 04/21/19 23:04 Urine Mucus 1+ /HPF 04/21/19 23:04 Influenza A (Rapid) Negative (Negative) 04/21/19 00:26 Influenza B (Rapid) Negative (Negative) 04/21/19 00:26 Active Medications - Current Medications Current Medications: Generic Name Dose Route Start Last Admin Trade Name Freq PRN Reason Stop Dose Admin Acetaminophen 650 mg 04/22/19 00:49 Tylenol PO Q4H PRN Pain MILD(1-3)/Fever >100.5/HONG Albuterol 2.5 mg 04/22/19 00:49 04/26/19 04:20 Proventil IH 2.5 mg Q3HRT PRN Administration Shortness Of Breath Albuterol/Ipratropium 1 ampul 04/22/19 02:00 04/26/19 08:23 Duoneb *Not For Prn Use* IH 1 ampul Q6HRT ELOISE Administration Alprazolam 0.25 mg 04/24/19 14:54 04/26/19 09:20 Xanax PO 0.25 mg Q8H PRN Administration Anxiety Budesonide 0.5 mg 04/22/19 08:00 04/26/19 08:23 Pulmicort IH 0.5 mg Q12HRT ELOISE Administration Buspirone HCl 15 mg 04/22/19 10:00 04/26/19 09:20 Buspar PO 15 mg BID ELOISE Administration Dextrose 0 ml 04/22/19 00:49 D50w (25gm) Syringe IV Q30MIN PRN Hypoglycemia Protocol Docusate Sodium 100 mg 04/22/19 10:00 04/26/19 09:20 Colace PO 100 mg BID ELOISE Administration Heparin Sodium (Porcine) 5,000 unit 04/22/19 10:00 04/26/19 09:19 Heparin SUB-Q 5,000 unit Q12HR ELOISE Administration Levofloxacin/Dextrose 500 mg in 100 mls @ 100 mls/hr 04/22/19 10:00 04/26/19 09:20 Levaquin 500mg/100ml IV 100 mls/hr Q24HR ELOISE Administration Protocol Insulin Human Lispro 0 unit 04/22/19 07:30 04/26/19 12:00 Humalog SUB-Q 2 unit ACHS ELOISE Administration Protocol Melatonin 10 mg 04/22/19 22:00 04/25/19 21:53 Melatonin PO 10 mg QHS ELOISE Administration Metformin HCl 500 mg 04/22/19 08:00 04/26/19 09:27 Glucophage PO 500 mg BIDDIAB ELOISE Administration Methylprednisolone Sodium Succinate 80 mg 04/22/19 06:00 04/26/19 05:58 Solu-Medrol IV 80 mg Q8HR ELOISE Administration Ondansetron HCl 4 mg 04/22/19 00:49 Zofran IV Q8H PRN Nausea And Vomiting Oxycodone/Acetaminophen 1 tab 04/22/19 00:49 04/26/19 06:46 Percocet 5/325 PO 1 tab Q6H PRN Administration Pain, Moderate (4-6) Sodium Chloride 10 ml 04/22/19 10:00 04/26/19 09:21 Sodium Chloride Flush Syringe 10 Ml IV 10 ml BID ELOISE Administration Sodium Chloride 10 ml 04/22/19 00:49 Sodium Chloride Flush Syringe 10 Ml IV PRN PRN LINE FLUSH Nutrition/Malnutrition Assess - Dietary Evaluation Nutrition/Malnutrition Findings: Nutrition Notes Start: 04/22/19 11:37 Freq: Status: Active Protocol: Document 04/22/19 11:37 CW (Rec: 04/22/19 11:48 CW [id number]) Co-Sign 04/22/19 11:37 LP Nutrition Notes Need for Assessment generated from: MD Order Initial or Follow up Assessment Current Diagnosis COPD,Diabetes,Respiratory Failure,Hyperlipidemia Other Pertinent Diagnosis SIRS, A fib, Substance dependence Current Diet Cardiac Consistent CHO Labs/Tests POC BG 178 HgbA1c 7.6 Pertinent Medications Glucophage Humalog Solu-Medrol Colace Percocet Height 5 ft 8 in Weight 95.3 kg Usual Body Weight 91.4 kg [place] Body Weight (kg) 70.00 BMI 31.9 Weight change and time frame Wt gain noted Weight Status Obese Subjective/Other Information MD consult for malnutrition. Pt lethargic and mildly responsive during visit. Pt stated that UBW is 201 lbs, indicating wt gain. Pt currently eating 75% of meals. D/T elevated HgbA1c, Pt is a candidate for diet edu R/T DM management Burn Absent Trauma Absent GI Symptoms Constipation Current % PO Good (75-100%) Minimum of two criteria No physical signs of malnutrition #1 Nutrition Diagnosis Food and nutrition-related knowledge deficit Etiology Lack of diet education related to DM As Evidenced by Signs and Symptoms Pt needing diet edu D/T HgbA1c of 7.6 Is patient on ventilator? No Is Patient Ambulatory and/or Out of Bed No REE-([facility]-confined to bed) 3.716 Kcal/Kg value to use for calculation 16 Approximate Energy Requirements Using 1525 kcal/Kg Calculation Used for Recommendations Kcal/kg Additional Notes protein needs: 66 - 83 g (0.8 - 1 g/kgAdBW; AdBW: 83 kg) Fluid needs: 1 ml/kcal Nutrition Intervention Change Diet Order: Continue cardiac consistent CHO Goal #1 Meet at least 75% of kcal/ protein needs Goal #2 Diet education regarding DM Anticipated Discharge Needs: Cardiac Consistent CHO diet Follow-Up By: 04/26/19 Additional Comments F/U DM diet education and stable PO intakes
[2019-04-26] MEDS: MELATONIN 5 MG TAB PO SCH (21:00)
[2019-04-27] MEDS: oxyCODONE /ACETAMINOPHEN 5-325MG TAB PO PRN ×4 (01:12→20:03)
[2019-04-27] MEDS: IPRATROPIUM/ALBUTEROL SULFATE 3 ML AMPUL.NEB IH SCH ×5 (01:56→20:27)
[2019-04-27] MEDS: ALPRAZolam 0.25 MG TAB PO PRN ×2 (06:50→15:56)
[2019-04-27] MEDS: methylPREDNISolone Sod Succinate 40 MG/1 ML INJ IV SCH ×3 (06:50→21:40)
[2019-04-27] MEDS: BUDESONIDE 0.5 MG/2 ML NEBU IH SCH ×3 (07:21→20:27)
[2019-04-27] MEDS: INSULIN LISPRO 100 UNIT/ML SUB-Q SCH ×3 (08:42→17:01)
[2019-04-27] MEDS: metFORMIN 500 MG TAB PO SCH ×2 (08:42→17:01)
[2019-04-27] MEDS: busPIRone 5 MG TAB PO SCH ×2 (10:41→21:40)
[2019-04-27] MEDS: levoFLOXacin 500 MG TAB PO SCH (10:41)
[2019-04-27] MEDS: DOCUSATE SODIUM 100 MG CAP PO SCH ×2 (10:41→21:40)
[2019-04-27] MEDS: HEPARIN 5,000 UNIT/1 ML VIAL SUB-Q SCH ×2 (10:41→21:46)
--- NOTE | 2019-04-27 12:20 | Progress Note ---
Assessment and Plan /Acute on chronic hypoxic respiratory failure; due to COPD exacerbation Required BiPAP, patient is on home oxygen cont Nebulizers, IV steroids, inhalation steroids /Acute bronchitis/pneumonitis Treated with Levaquin, bronchodilators, o2 /Acute exacerbation of COPD; causing acute respiratory failure Con ton Oxygen, nebs, steroids, inhalers, supportive care /H/o systolic HF - EF unknown, stable cardiac rosario, compensated /h/o chronic atrial fib ?, pt is poor historian, not on ant AC, rhythm here ST only, no afib on monitor /Type 2 diabetes mellitus; Accu-Chek sliding scale coverage ADA diet, insulin A1c 7.9 also cont home dose of metformin /Moderate malnutrition/hypoalbuminemia Cont Nutrition supplements /SIRS: likely from COPD exacerbation negative cultures, given empiric antibiotics, /-DVT prophylaxis; heparin subcu /-Obesity; BMI 31.9 Advised weight reduction when medically stable /Ongoing tobacco use; smoking cessation counseling Nicotine patch as needed /Recreational drug use; alcohol, marijuana Advised to quit /-Full CODE STATUS; Patient is stable for discharge back to SNF However patient refused discharge and appealed Wants to go to a different residential Case management assisting with DC planning Disposition; patient appealed the discharge Plan of care reviewed with the patient and his nurse Brief History 63-year-old male patient resident of [facility] was admitted with acute on chronic respiratory failure secondary to acute exacerbation of COPD.Patient symptoms significantly improved initially wanted to discharge back to [facility] facility on tapering dose of steroids and antibiotics. Patient refused and appealed the discharge. Hospitalist Physical General appearance: Present: no acute distress, well-nourished, obese - EENT Eyes: Present: PERRL, EOM intact - Neck Neck: Present: supple, normal ROM - Respiratory Respiratory effort: normal Respiratory: bilateral: diminished, wheezing, negative: rales, rhonchi - Cardiovascular Rhythm: regular Heart Sounds: Present: S1 & S2 - Extremities Extremities: no ischemia, No edema - Abdominal General gastrointestinal: soft, non-tender, non-distended, normal bowel sounds - Integumentary Integumentary: Present: clear, warm - Psychiatric Psychiatric: appropriate mood/affect, cooperative - Neurologic Neurologic: moves all extremities Subjective Date of service: 04/27/19 Interval history: Patient seen and examined No acute distressed, on 2l N/c, sitting on bed c/o minimal SOB on ambulation appealed his discharge Objective - Constitutional Vitals: Vital Signs - 12hr 04/27/19 04/27/19 04/27/19 01:12 01:15 05:58 Temperature 97.8 F Pulse Rate 98 H Pulse Rate [ 80 Anterior Bilateral Throughout] Respiratory 20 20 Rate Respiratory 20 Rate [Anterior Bilateral Throughout] Blood Pressure 138/84 O2 Sat by Pulse 92 Oximetry 04/27/19 04/27/19 04/27/19 06:50 07:20 07:21 Temperature Pulse Rate Pulse Rate [ 81 Anterior Bilateral Throughout] Respiratory 20 Rate Respiratory 20 Rate [Anterior Bilateral Throughout] Blood Pressure O2 Sat by Pulse 95 Oximetry - Labs CBC & Chem 7: 04/23/19 07:06 04/23/19 07:06 Labs: Abnormal lab results 04/26/19 04/26/19 04/26/19 Range/Units 17:07 22:24 22:58 POC Glucose 198 H 166 H 279 H (70-105) 04/27/19 04/27/19 Range/Units 08:15 11:48 POC Glucose 175 H 193 H (70-105)
[2019-04-27] MEDS: MELATONIN 5 MG TAB PO SCH (21:39)
[2019-04-28] MEDS: INSULIN LISPRO 100 UNIT/ML SUB-Q SCH ×4 (00:27→17:28)
[2019-04-28] MEDS: IPRATROPIUM/ALBUTEROL SULFATE 3 ML AMPUL.NEB IH SCH ×3 (02:14→13:09)
[2019-04-28] MEDS: oxyCODONE /ACETAMINOPHEN 5-325MG TAB PO PRN ×3 (03:15→16:36)
[2019-04-28] MEDS: methylPREDNISolone Sod Succinate 40 MG/1 ML INJ IV SCH ×2 (06:23→13:23)
[2019-04-28] MEDS: metFORMIN 500 MG TAB PO SCH ×2 (08:24→17:28)
[2019-04-28] MEDS: ALPRAZolam 0.25 MG TAB PO PRN ×3 (08:24→16:36)
[2019-04-28] MEDS: BUDESONIDE 0.5 MG/2 ML NEBU IH SCH (08:34)
[2019-04-28] MEDS: busPIRone 5 MG TAB PO SCH (09:54)
[2019-04-28] MEDS: levoFLOXacin 500 MG TAB PO SCH (09:55)
[2019-04-28] MEDS: DOCUSATE SODIUM 100 MG CAP PO SCH (09:55)
[2019-04-28] MEDS: HEPARIN 5,000 UNIT/1 ML VIAL SUB-Q SCH (09:56)
--- NOTE | 2019-04-28 13:14 | Discharge Summary ---
Providers - Providers Date of Admission: 04/22/19 01:55 Date of discharge: 04/28/19 Attending physician: MADDY DEAL 04/22/19 00:54 Consult to Dietitian/Nutrition [CONS] Routine Physician Instructions: Reason For Exam: Reason for Consult: Malnutrition 04/22/19 13:58 Physical Therapy Evaluation and Treat [CONS] Routine Comment: From [facility] Reason For Exam: Generalized Weakness Primary care physician: V BLOCK SAW OPERATOR Hospitalization Condition: Serious Pertinent studies: CXR Hospital course: 63-year-old male patient resident of [facility] was admitted with acute on chronic respiratory failure secondary to acute exacerbation of COPD. Patient symptoms significantly improved initially wanted to discharge back to long term facility on tapering dose of steroids and antibiotics. Patient refused and appealed the discharge. Discharge diagnosis and Mx: /Acute on chronic hypoxic respiratory failure; due to COPD exacerbation Required BiPAP, patient is on home oxygen cont Nebulizers, IV steroids, inhalation steroids /Acute bronchitis/pneumonitis Treated with Levaquin, bronchodilators, o2 /Acute exacerbation of COPD; causing acute respiratory failure Con ton Oxygen, nebs, steroids, inhalers, supportive care /H/o systolic HF - EF unknown, stable cardiac rosario, compensated /h/o chronic atrial fib ?, pt is poor historian, not on ant AC, rhythm here ST only, no afib on monitor /Type 2 diabetes mellitus; Accu-Chek sliding scale coverage ADA diet, insulin A1c 7.9 also cont home dose of metformin /Moderate malnutrition/hypoalbuminemia Cont Nutrition supplements /SIRS: likely from COPD exacerbation negative cultures, given empiric antibiotics, /-DVT prophylaxis; heparin subcu /-Obesity; BMI 31.9 Advised weight reduction when medically stable /Ongoing tobacco use; smoking cessation counseling Nicotine patch as needed /Recreational drug use; alcohol, marijuana Advised to quit /-Full CODE STATUS; Disposition: DC/[place]-[facility] Time spent for discharge: 34 minutes Core Measure Documentation - Palliative Care Palliative Care/ Comfort Measures: Not Applicable - Core Measures Any of the following diagnoses?: history only Exam - Physical Exam Narrative exam: General appearance: Present: no acute distress, well-nourished, obese - EENT Eyes: Present: PERRL, EOM intact - Neck Neck: Present: supple, normal ROM - Respiratory Respiratory effort: normal Respiratory: bilateral: diminished, wheezing, negative: rales, rhonchi - Cardiovascular Rhythm: regular Heart Sounds: Present: S1 & S2 - Extremities Extremities: no ischemia, No edema - Abdominal General gastrointestinal: soft, non-tender, non-distended, normal bowel sounds - Integumentary Integumentary: Present: clear, warm - Psychiatric Psychiatric: appropriate mood/affect, cooperative - Neurologic Neurologic: moves all extremities - Constitutional Vitals: Temp Pulse Resp BP Pulse Ox 97.8 F 103 H 16 112/81 96 04/28/19 12:07 04/28/19 12:07 04/28/19 12:07 04/28/19 12:07 04/28/19 12:07 Plan Activity: advance as tolerated Weight Bearing Status: Non-Weight Bearing Special Instructions: restrict fluid intake to (1.2 L per day), record daily weights, record daily BP diary Follow up with: PRIMARY CARE, [Primary Care Provider] - 3-5 Days Prescriptions: Buspirone HCl [busPIRone] 15 mg PO BID #60 predniSONE [Deltasone] 10 mg PO QDAY #7 Aspirin EC [Halfprin EC] 81 mg PO QDAY #30 tablet. ALPRAZolam [Xanax TAB] 0.5 mg PO BID PRN #10 PRN Reason: Anxiety
[2019-04-28] MEDS ORDERED: DOCUSATE SODIUM 100 MG CAP PO PRN (13:33)
[2019-04-28] MEDS ORDERED: guaiFENesin 100 MG/5 ML ORAL LIQD PO PRN (13:33)
[2019-04-28] MEDS ORDERED: [UNRECOGNIZED DRUG - OTHER] PO SCH (13:45)
[2019-04-28] MEDS ORDERED: ACETAMINOPHEN PO SCH (13:45)
[2019-04-28] MEDS ORDERED: DIPHENHYDRAMINE PO SCH (13:45)
[2019-04-28] MEDS ORDERED: METOPROLOL TARTRATE 25 MG TAB PO SCH (15:00)
[2019-04-28 16:34] VITALS: BP 124/85
[2019-04-28] MEDS ORDERED: BUDESONIDE 0.5 MG/2 ML NEBU IH SCH (22:00)
[2019-04-29] MEDS ORDERED: ROFLUMILAST 500 MCG PO SCH (10:00)
== END 2019-04-28 17:52 | DRG 193 ==
LOC: ED 21:43 → 3A 04-22 01:55
PROVIDERS: ADMIT Internal Medicine; ATTEND Internal Medicine
PROC: 4A033R1 Measurement of Arterial Saturation, Peripheral, Percutaneous Approach (ICD-10-PCS; principal; 2019-04-21)
PROC: 5A09357 Assistance with Respiratory Ventilation, Less than 24 Consecutive Hours, Continuous Positive Airway Pressure (ICD-10-PCS; 2019-04-21)
PROC: 5A09357 Assistance with Respiratory Ventilation, Less than 24 Consecutive Hours, Continuous Positive Airway Pressure (ICD-10-PCS; 2019-04-22)
PROC: 5A09357 Assistance with Respiratory Ventilation, Less than 24 Consecutive Hours, Continuous Positive Airway Pressure (ICD-10-PCS; 2019-04-23)
PROC: 5A09357 Assistance with Respiratory Ventilation, Less than 24 Consecutive Hours, Continuous Positive Airway Pressure (ICD-10-PCS; 2019-04-24)
DX: J18.9 Pneumonia, unspecified organism (principal); J96.20 Acute and chronic respiratory failure, unspecified whether with hypoxia or hypercapnia; J44.1 Chronic obstructive pulmonary disease with (acute) exacerbation; R65.10 Systemic inflammatory response syndrome (SIRS) of non-infectious origin without acute organ dysfunction; E44.0 Moderate protein-calorie malnutrition; I50.20 Unspecified systolic (congestive) heart failure; J44.0 Chronic obstructive pulmonary disease with (acute) lower respiratory infection; I48.20 Chronic atrial fibrillation, unspecified; E66.9 Obesity, unspecified; I11.0 Hypertensive heart disease with heart failure; E11.8 Type 2 diabetes mellitus with unspecified complications; F17.200 Nicotine dependence, unspecified, uncomplicated; F12.90 Cannabis use, unspecified, uncomplicated; F41.9 Anxiety disorder, unspecified; J20.9 Acute bronchitis, unspecified; Z68.32 Body mass index [BMI] 32.0-32.9, adult; Z71.3 Dietary counseling and surveillance; Z71.6 Tobacco abuse counseling; Z79.899 Other long term (current) drug therapy
CPT/HCPCS: 36415; 71045; 80048; 80053; 81001; 82140; 82550; 82803; 82962; 83036; 83735; 84443; 84484; 85025; 85610; 87040; 87116; 87400; 93005; 93010; 94640; 94644; 94660; 94760; 99406; G0378; J0456; J0696; J1644; J1815; J1956; J2920; J7030; J7050

== ENCOUNTER 2019-08-15 16:42 | Emergency (ER) | payer MEDICARE ==
[2019-08-15 16:58] VITALS: BP 128/98
--- NOTE | 2019-08-15 17:05 | Emergency Department Report ---
ED General Adult HPI - General Chief complaint: Anxiety Stated complaint: GENERAL PAIN PUI?: No Time Seen by Provider: 08/15/19 17:04 Source: patient Mode of arrival: Stretcher Limitations: No Limitations - History of Present Illness Initial comments: Patient is a 64-year-old male that presents emergency room for management of his anxiety and chronic pain. Patient states he has had chronic pain and anxiety for many years. Patient states that he is a resident at [facility]. Patient states they are not managing his anxiety and chronic pain so he asked to be sent to the hospital. Patient was transported via EMS to our ER for management of his chronic conditions. Patient denies chest pain or shortness of breath. Patient denies new symptoms. Patient denies any acute illness. Patient denies nausea vomiting. Patient denies abdominal pain. Patient states his chronic pain is in his back. Patient states that his anxiety is worsening. Pain states chronic pain is worsening. Patient states he is not getting or receiving pain medication or anxiety medications at his fpc. Patient transfer form reviewed. Patient transfer form states that he is coming to the emergency room for pain management. Patient's fpc documents accompany his transfer form and are reviewed. Patient has a past medical history of COPD, CHF, type 2 diabetes, anxiety, chronic pain, A. fib. Patient's med list reviewed. Patient denies recent travel. Patient denies recent international travel. Patient denies exposure to the novel coronavirus. Patient denies sick contacts. Patient denies fever and chills. Patient denies cough. Patient denies diarrhea. Patient denies coming in contact with anybody with symptoms of the novel coronavirus. -: year(s) Location: back Radiation: non-radiation Severity scale (0 -10): 10 Consistency: constant Improves with: medication, rest Worsens with: movement Associated Symptoms: denies other symptoms. denies: confusion, chest pain, cough, diaphoresis, fever/chills, headaches, loss of appetite, malaise, nausea/vomiting, rash, seizure, shortness of breath, syncope, weakness Treatments Prior to Arrival: none - Related Data Home Medications Medication Instructions Recorded Confirmed Last Taken Budesonide [Pulmicort Respules] 0.5 mg IH Q12HR 04/22/19 04/22/19 Unknown Docusate Sodium [Colace CAP] 100 mg PO DAILY PRN 04/22/19 04/22/19 Unknown Melatonin [Melatonin 10MG CAP] 2 tab PO Q8H PRN 04/22/19 04/22/19 Unknown Metoprolol [Lopressor TAB] 25 mg PO DAILY 04/22/19 04/22/19 Unknown Roflumilast [Daliresp] 500 mcg PO QDAY 04/22/19 04/22/19 Unknown guaiFENesin [Robitussin] 5 ml PO Q4H PRN 04/22/19 04/22/19 Unknown metFORMIN [Glucophage] 500 mg PO BID 04/22/19 04/22/19 Unknown Previous Rx's Medication Instructions Recorded Last Taken Type ALPRAZolam [Xanax TAB] 0.5 mg PO BID PRN #10 04/28/19 Unknown Rx Aspirin EC [Halfprin EC] 81 mg PO QDAY #30 tablet. 04/28/19 Unknown Rx Buspirone HCl [busPIRone] 15 mg PO BID #60 04/28/19 Unknown Rx Ipratropium/Albuterol Sulfate 1 ampul IH Q6HRT ampul.neb 04/28/19 Unknown Rx [DUONEB *Not for PRN Use*] oxyCODONE /ACETAMINOPHEN [Percocet 1 tab PO Q6H PRN #14 tablet 04/28/19 Unknown Rx 5/325 mg] predniSONE [Deltasone] 10 mg PO QDAY #7 04/28/19 Unknown Rx Allergies Allergy/AdvReac Type Severity Reaction Status Date / Time No Known Allergies Allergy Unverified 04/21/19 22:02 ED Review of Systems ROS: Stated complaint: GENERAL PAIN Other details as noted in HPI Constitutional: denies: chills, fever Eyes: denies: eye pain, eye discharge, vision change ENT: denies: ear pain, throat pain Respiratory: denies: cough, shortness of breath, wheezing Cardiovascular: denies: chest pain, palpitations Endocrine: no symptoms reported Gastrointestinal: denies: abdominal pain, nausea, diarrhea Genitourinary: denies: urgency, dysuria Musculoskeletal: back pain. denies: joint swelling, arthralgia Skin: denies: rash, lesions Neurological: denies: headache, weakness, paresthesias Psychiatric: anxiety. denies: depression Hematological/Lymphatic: denies: easy bleeding, easy bruising ED Past Medical Hx - Past Medical History Previous Medical History?: Yes Hx Hypertension: Yes Hx Congestive Heart Failure: Yes Hx Diabetes: Yes Hx Arthritis: Yes (hands) Hx Psychiatric Treatment: Yes (anxiety) Hx COPD: Yes Hx HIV: No Additional medical history: chronic respiratory failure, chronic Afib, hyperlipidemia, chronic back pain - Surgical History Past Surgical History?: Yes Additional Surgical History: both shoulder, both knees, right foot, back - Family History Family history: no significant - Social History Smoking Status: Former Smoker Substance Use Type: Alcohol - Medications Home Medications: Home Medications Medication Instructions Recorded Confirmed Last Taken Type Budesonide [Pulmicort Respules] 0.5 mg IH Q12HR 04/22/19 04/22/19 Unknown History Docusate Sodium [Colace CAP] 100 mg PO DAILY PRN 04/22/19 04/22/19 Unknown History Melatonin [Melatonin 10MG CAP] 2 tab PO Q8H PRN 04/22/19 04/22/19 Unknown History Metoprolol [Lopressor TAB] 25 mg PO DAILY 04/22/19 04/22/19 Unknown History Roflumilast [Daliresp] 500 mcg PO QDAY 04/22/19 04/22/19 Unknown History guaiFENesin [Robitussin] 5 ml PO Q4H PRN 04/22/19 04/22/19 Unknown History metFORMIN [Glucophage] 500 mg PO BID 04/22/19 04/22/19 Unknown History ALPRAZolam [Xanax TAB] 0.5 mg PO BID PRN #10 04/28/19 Unknown Rx Aspirin EC [Halfprin EC] 81 mg PO QDAY #30 tablet. 04/28/19 Unknown Rx Buspirone HCl [busPIRone] 15 mg PO BID #60 04/28/19 Unknown Rx Ipratropium/Albuterol Sulfate 1 ampul IH Q6HRT ampul.neb 04/28/19 Unknown Rx [DUONEB *Not for PRN Use*] oxyCODONE /ACETAMINOPHEN [Percocet 1 tab PO Q6H PRN #14 tablet 04/28/19 Unknown Rx 5/325 mg] predniSONE [Deltasone] 10 mg PO QDAY #7 04/28/19 Unknown Rx ED Physical Exam - General Limitations: No Limitations General appearance: alert, in no apparent distress - Head Head exam: Present: atraumatic, normocephalic - Eye Eye exam: Present: normal appearance - ENT ENT exam: Present: mucous membranes moist - Neck Neck exam: Present: normal inspection - Respiratory Respiratory exam: Present: normal lung sounds bilaterally. Absent: respiratory distress, wheezes, rales - Cardiovascular Cardiovascular Exam: Present: regular rate, normal rhythm. Absent: systolic murmur, diastolic murmur, rubs, gallop - GI/Abdominal GI/Abdominal exam: Present: soft, normal bowel sounds. Absent: distended, tenderness, guarding - Rectal Rectal exam: Present: deferred - Extremities Exam Extremities exam: Present: normal inspection - Back Exam Back exam: Present: normal inspection - Neurological Exam Neurological exam: Present: alert, oriented X3 - Psychiatric Psychiatric exam: Present: depressed, anxious. Absent: homicidal ideation, suicidal ideation - Skin Skin exam: Present: warm, dry, intact, normal color. Absent: rash ED Course Vital Signs 08/15/19 16:52 Pulse Rate 82 Respiratory 18 Rate Blood Pressure 128/98 O2 Sat by Pulse 98 Oximetry - Reevaluation(s) Reevaluation #1: Patient evaluated. Patient does not have an acute medical problem or require emergency medical services. Patient is stable to return to his f[facility] for management of his chronic pain and anxiety. I discussed all clinical findings with patient. I discussed plan of care with patient. Patient agrees with plan of care. Patient is stable for discharge. Patient will be discharged home. Patient given discharge instructions. Patient voiced understanding of discharge instructions. 08/15/19 17:21 ED Medical Decision Making - Medical Decision Making Patient is a 64-year-old male that presents emergency room for management of chronic pain and chronic anxiety. Patient requested to be transferred to the emergency room from his fpc because he felt he was not receiving adequate medication or medical therapy for his chronic pain and chronic anxiety. Patient does not presents emergency room with an acute problem. Patient does not require further evaluation in the ER. Patient does not require further emergency medical services. Patient will be discharged back to his fpc and the nursing facility is fully able to manage his chronic pain and chronic anxiety. I discussed the plan of care with patient. Patient agrees plan of care. Patient is stable for discharge. Patient be discharged from the ER. - Differential Diagnosis Chronic pain, chronic anxiety Critical care attestation.: If time is entered above; I have spent that time in minutes in the direct care of this critically ill patient, excluding procedure time. ED Disposition Clinical Impression: Anxiety Chronic pain Qualifiers: Chronic pain type: other chronic pain Qualified Code(s): G89.29 - Other chronic pain Disposition: [id number]/TX-[id number] ANOTHER TYPE HLTHCARE Is pt being admited?: No Does the pt Need Aspirin: No Condition: Stable Instructions: Anxiety (ED), Chronic Pain (ED) Additional Instructions: Patient to be discharged back to his f[facility]. Patient medical conditions t o be managed by his fpc facility. Patient to follow-up with primary care in 2 to 3 days. Patient to rest. Patient to increase water. Patient to take Tylenol or ibuprofen as needed for pain. Patient to continue all home medications. Patient to return to the ER if condition worsens, changes or new symptoms arise. Referrals: PRIMARY CARE, [Primary Care Provider] - [facility] Time of Disposition: 17:25
--- NOTE | 2019-08-15 17:05 | Emergency Department Report ---
ED Anxiety HPI - General Chief Complaint: Anxiety Stated Complaint: GENERAL PAIN Time Seen by Provider: 08/15/19 17:04 Source: patient Mode of arrival: Stretcher - Related Data Home Medications: Home Medications Medication Instructions Recorded Confirmed Last Taken Budesonide [Pulmicort Respules] 0.5 mg IH Q12HR 04/22/19 04/22/19 Unknown Docusate Sodium [Colace CAP] 100 mg PO DAILY PRN 04/22/19 04/22/19 Unknown Melatonin [Melatonin 10MG CAP] 2 tab PO Q8H PRN 04/22/19 04/22/19 Unknown Metoprolol [Lopressor TAB] 25 mg PO DAILY 04/22/19 04/22/19 Unknown Roflumilast [Daliresp] 500 mcg PO QDAY 04/22/19 04/22/19 Unknown guaiFENesin [Robitussin] 5 ml PO Q4H PRN 04/22/19 04/22/19 Unknown metFORMIN [Glucophage] 500 mg PO BID 04/22/19 04/22/19 Unknown Previous Rx's Medication Instructions Recorded Last Taken Type ALPRAZolam [Xanax TAB] 0.5 mg PO BID PRN #10 04/28/19 Unknown Rx Aspirin EC [Halfprin EC] 81 mg PO QDAY #30 tablet. 04/28/19 Unknown Rx Buspirone HCl [busPIRone] 15 mg PO BID #60 04/28/19 Unknown Rx Ipratropium/Albuterol Sulfate 1 ampul IH Q6HRT ampul.neb 04/28/19 Unknown Rx [DUONEB *Not for PRN Use*] oxyCODONE /ACETAMINOPHEN [Percocet 1 tab PO Q6H PRN #14 tablet 04/28/19 Unknown Rx 5/325 mg] predniSONE [Deltasone] 10 mg PO QDAY #7 04/28/19 Unknown Rx Allergies/Adverse Reactions: Allergies Allergy/AdvReac Type Severity Reaction Status Date / Time No Known Allergies Allergy Unverified 04/21/19 22:02 ED Review of Systems ROS: Stated complaint: GENERAL PAIN Other details as noted in HPI ED Past Medical Hx - Past Medical History Previous Medical History?: Yes Hx Hypertension: Yes Hx Congestive Heart Failure: Yes Hx Diabetes: Yes Hx Arthritis: Yes (hands) Hx Psychiatric Treatment: Yes (anxiety) Hx COPD: Yes Hx HIV: No Additional medical history: chronic respiratory failure, chronic Afib, hyperlipidemia - Surgical History Past Surgical History?: Yes Additional Surgical History: both shoulder, both knees, right foot, back - Social History Smoking Status: Former Smoker Substance Use Type: Alcohol - Medications Home Medications: Home Medications Medication Instructions Recorded Confirmed Last Taken Type Budesonide [Pulmicort Respules] 0.5 mg IH Q12HR 04/22/19 04/22/19 Unknown History Docusate Sodium [Colace CAP] 100 mg PO DAILY PRN 04/22/19 04/22/19 Unknown History Melatonin [Melatonin 10MG CAP] 2 tab PO Q8H PRN 04/22/19 04/22/19 Unknown History Metoprolol [Lopressor TAB] 25 mg PO DAILY 04/22/19 04/22/19 Unknown History Roflumilast [Daliresp] 500 mcg PO QDAY 04/22/19 04/22/19 Unknown History guaiFENesin [Robitussin] 5 ml PO Q4H PRN 04/22/19 04/22/19 Unknown History metFORMIN [Glucophage] 500 mg PO BID 04/22/19 04/22/19 Unknown History ALPRAZolam [Xanax TAB] 0.5 mg PO BID PRN #10 04/28/19 Unknown Rx Aspirin EC [Halfprin EC] 81 mg PO QDAY #30 tablet. 04/28/19 Unknown Rx Buspirone HCl [busPIRone] 15 mg PO BID #60 04/28/19 Unknown Rx Ipratropium/Albuterol Sulfate 1 ampul IH Q6HRT ampul.lyn 04/28/19 Unknown Rx [DUONEB *Not for PRN Use*] oxyCODONE /ACETAMINOPHEN [Percocet 1 tab PO Q6H PRN #14 tablet 04/28/19 Unknown Rx 5/325 mg] predniSONE [Deltasone] 10 mg PO QDAY #7 04/28/19 Unknown Rx ED Physical Exam - General Limitations: No Limitations ED Course Vital Signs 08/15/19 16:52 Pulse Rate 82 Respiratory 18 Rate Blood Pressure 128/98 O2 Sat by Pulse 98 Oximetry Critical care attestation.: If time is entered above; I have spent that time in minutes in the direct care of this critically ill patient, excluding procedure time. ED Disposition Condition: Stable Referrals: PRIMARY CARE, [Primary Care Provider] - 3-5 Days
== END 2019-08-15 17:42 | disposition other institution (70) ==
LOC: ED 16:42
DX: F41.9 Anxiety disorder, unspecified (principal); M54.6 Pain in thoracic spine; G89.29 Other chronic pain; I11.0 Hypertensive heart disease with heart failure; I50.9 Heart failure, unspecified; E11.9 Type 2 diabetes mellitus without complications; M19.91 Primary osteoarthritis, unspecified site; J44.9 Chronic obstructive pulmonary disease, unspecified; Z98.890 Other specified postprocedural states; Z87.891 Personal history of nicotine dependence; Z79.899 Other long term (current) drug therapy
CPT/HCPCS: 99282